=== PATIENT | female | born 1980 | race Caucasian/White ===

== ENCOUNTER 2019-09-11 22:56 | Inpatient (IN) | payer MEDICAID ==
[~2019-09-11] VITALS: Ht 152.4 cm; Wt 56.1 kg
[2019-09-11 23:27] LABS: HEMATOCRIT 46.5 % (36.0-48.0); HEMOGLOBIN 14.5 g/dL (12-16); MCH 27.5 pg (26.0-34.0); MCHC 31.2 g/dL (31.0-37.0); MCV 88.2 fL (80.0-100.0); MEAN PLATELET VOLUME 8.4 fL (7.4-10.4); PLATELET COUNT 559 10x3/uL (130-400); RBC 5.27 10x6/uL (4.00-5.40); RDW 14.7 % (11.5-14.5); WBC 25.1 10x3/uL (4.8-10.8)
[2019-09-11 23:38] LABS: INR 1.26 (0.85-1.17); PROTIME 15.3 SECONDS (11.6-15.0)
[2019-09-11 23:40] LABS: KETONE - SERUM LARGE mg/dL (NEGATIVE)
[2019-09-11 23:44] LABS: HCG SERUM NEGATIVE (NEGATIVE)
[2019-09-11 23:53] LABS: EOSINOPHILS 1 % (0-7); LYMPHOCYTES 20 % (15-50); MONOCYTES 5 % (2-11); NEUTROPHILS 69 % (40-80)
[2019-09-11 23:54] LABS: PLATELET ESTIMATE INCREASED
[2019-09-12] VITALS (28 sets, daily range): BP systolic 104–160; BP diastolic 58–90; BMI 24.3; BMI 24.2
[2019-09-12 00:02] LABS: ALBUMIN 3.9 g/dL (3.4-5.0); ALKALINE PHOSPHATASE 194 U/L (46-116); ALT (SGPT) 39 U/L (10-68); AMYLASE - SERUM 38 U/L (25-115); BILIRUBIN - TOTAL 0.44 mg/dL (0.2-1.3); CALCIUM 8.9 mg/dL (8.5-10.1); CHLORIDE - SERUM 95 mmol/L (98-107); CKMB 0.9 U/L (0.0-3.6); CREATINE KINASE 47 UL (21-215); CREATININE - SERUM 1.1 mg/dL (0.6-1.3); LIPASE 114 U/L (73-393); MAGNESIUM - SERUM 2.1 mg/dL (1.8-2.4); POTASSIUM - SERUM 5.2 mmol/L (3.5-5.1); PROTEIN - SERUM 9.5 g/dL (6.4-8.2); SODIUM 131 mmol/L (136-145); UREA NITROGEN 19 mg/dL (7-18); eGFR NON AFRICAN AMERICAN 59 mL/min (90-120)
[2019-09-12 00:06] LABS: CALC OSMOLALITY 284 mosm/kg (275-300); TROPONIN-I < 0.017 ng/mL (0.000-0.060)
[2019-09-12 00:07] LABS: CARBON DIOXIDE 5.8 mmol/L (21.0-32.0); GLUCOSE 464 mg/dL (74-106)
[2019-09-12 00:16] LABS: APPEARANCE HAZY (CLEAR); BILIRUBIN NEGATIVE (NEGATIVE); COLOR STRAW (YELLOW); GLUCOSE 1000 mg/dL (NEGATIVE); KETONE LARGE mg/dL (NEGATIVE); NITRITE NEGATIVE (NEGATIVE); PROTEIN 1+ mg/dL (NEGATIVE); UROBILINOGEN NORMAL (NORMAL)
[2019-09-12 00:17] LABS: RED CELLS - URINE 0-5 /hpf (0-5); UDS - AMPHET NEGATIVE QUAL (NEGATIVE); UDS - BARB NEGATIVE QUAL (NEGATIVE); UDS - BENZO NEGATIVE QUAL (NEGATIVE); UDS - COCAINE NEGATIVE QUAL (NEGATIVE); UDS - OPIATE NEGATIVE QUAL (NEGATIVE); UDS - PCP NEGATIVE QUAL (NEGATIVE); UDS - THC NEGATIVE QUAL (NEGATIVE); WHITE CELLS - URINE 0-5 /hpf (NEGATIVE)
[2019-09-12 00:18] LABS: AMORPHOUS SEDIMENT <1+ /lpf (NONE SEEN); BACTERIA FEW /hpf (NEGATIVE); EPITHELIAL CELLS 0-5 /hpf (0-5)
--- NOTE | 2019-09-12 02:30 | NUR ---
UNABLE TO GET TEMP ABOVE 92.8. LYDIA HUGGER PLACED ON PATIENT.
--- NOTE | 2019-09-12 03:10 | NUR ---
UPON ENTERING PATIENT ROOM PATIENT WAS FOUND STANDING AT THE END OF THE BED AND STATES SHE WAS GETTING WATER FROM SINK. FOUND EJ IN PATIENT NECK WAS PULLED OUT. ASSISTED PATIENT BACK TO BED AND EXPLAINED WHY SHE COULDN'T HAVE ANYTHING TO DRINK AT THIS TIME. MOUTH SWAB GIVEN.
--- NOTE | 2019-09-12 03:45 | NUR ---
IV RESTARTED IN L AC WITH 22 G CATH X3 STICKS USING ASEPTIC TECHNIQUE. IV WITH GOOD BLOOD RETURN AND FLUSHED EASILY. IV IN L HAND INTACT AND PATENT.
--- NOTE | 2019-09-12 04:57 | NUR ---
PATIENT TEMP IS UP TO 94.8 BUT PATIENT REFUSES TO HAVE LYDIA HUGGER ON AT THIS TIME. PATIENT IS VERY BELLIGERENT, CUSSING, AND REFUSING TO COOPERATE UNTIL SHE CAN HAVE ICE CHIPS.
--- NOTE | 2019-09-12 05:28 | NUR ---
PATIENTS BOYFRIEND IS AT BEDSIDE, CAME OUT TO NURSES STATION STATING THE PATIENT WAS WANTING PAIN MEDICATION. EXPLAINED TO HIM THAT PATIENT HAS BEEN VERY OBTUNDED PRIOR TO HIS ARRIVAL.
[2019-09-12 05:44] LABS: CALCIUM 8.3 mg/dL (8.5-10.1); CHLORIDE - SERUM 108 mmol/L (98-107); POTASSIUM - SERUM 4.6 mmol/L (3.5-5.1); SODIUM 141 mmol/L (136-145); UREA NITROGEN 17 mg/dL (7-18)
[2019-09-12 05:45] LABS: CALC OSMOLALITY 294 mosm/kg (275-300); CREATININE - SERUM 0.8 mg/dL (0.6-1.3); GLUCOSE 307 mg/dL (74-106); eGFR NON AFRICAN AMERICAN 85 mL/min (90-120)
[2019-09-12 05:46] LABS: CARBON DIOXIDE 4.9 mmol/L (21.0-32.0)
--- NOTE | 2019-09-12 06:49 | NUR ---
ABG ORDERED FOR PATIENT AT 0630--PATIENT IS REFUSING ABG UNTIL SHE GETS ICE CHIPS. PER NURSE PATIENT IS UNABLE TO HAVE ICE CHIPS DUE TO DKA/VOMITTING. ADVISED PATIENT THAT WE NEED TO HAVE THE RESULTS OF THE ABG SO THAT WE CAN PROPERLY TREAT HER BUT PATIENT IS REFUSING.
--- NOTE | 2019-09-12 07:00 | NUR ---
RECEIVED REPORT AT BEDSIDE. PT ON INSULIN DRIP AT 10.7UNITS/HR. HR TACHYCARDIC. OTHER VITALS STABLE. PT AWAKE AND ALERT WILL CONTINUE TO MONITOR
[2019-09-12 08:32] LABS: CALC OSMOLALITY 287 mosm/kg (275-300); CALCIUM 7.7 mg/dL (8.5-10.1); CHLORIDE - SERUM 114 mmol/L (98-107); CREATININE - SERUM 0.7 mg/dL (0.6-1.3); GLUCOSE 173 mg/dL (74-106); SODIUM 142 mmol/L (136-145); UREA NITROGEN 16 mg/dL (7-18); eGFR NON AFRICAN AMERICAN > 90 mL/min (90-120)
[2019-09-12 08:33] LABS: CARBON DIOXIDE 8.4 mmol/L (21.0-32.0)
--- NOTE | 2019-09-12 10:35 | NUR ---
PATIENT RESTING STABLE IN BED. ZOFRAN DRIP INFUSING. INSULIN DRIP INFUSING PER DKA PROTOCOL CALCULATION. D5 1/2 NS INFUSING AT 175.
--- NOTE | 2019-09-12 11:48 | MORECARE ---
CASE MANAGEMENT DISCHARGE SUMMARY PATIENT: BECKA OLSON UNIT: [id number] ADM DATE: 09/12/19 AGE: 39 : 82 SEX: F ROOM/BED: D.2302 AUTHOR: CHASIDY SINGH PHYSICIAN: REFERRING PHYSICIAN: SAEED CASTAÑEDA MD DATE OF SERVICE: 09/12/19 Discharge Plan Patient Name: BECKA OLSON Facility: [facility]:[place] : 1980 Planned Disposition: Anticipated Discharge Date: Discharge Date: Expected LOS: Initial Reviewer: [email or web address] Initial Review Date: 09/12/2019 Generated: 09/12/19 12:47 pm Patient Name: BECKA OLSON Page [phone] at 1148 All edits/amendments must be made on the electronic document DICTATION DATE: 09/12/19 1147 OPTICAL MECHANIC APPRENTICE: ABEBE 09/12/19 1147 RPT#: [id number] DC DATE: STATUS: ADM IN [facility] [address] [place] [address] END OF REPORT
--- NOTE | 2019-09-12 11:55 | MORECARE ---
CASE MANAGEMENT DISCHARGE SUMMARY PATIENT: BECKA OLSON UNIT: [id number] ADM DATE: 09/12/19 AGE: 39 : 82 SEX: F ROOM/BED: D.2302 AUTHOR: CHASIDY SINGH PHYSICIAN: REFERRING PHYSICIAN: SAEED CASTAÑEDA MD DATE OF SERVICE: 09/12/19 Discharge Plan Patient Name: BECKA OLSON Facility: [facility]:[place] : 1980 Planned Disposition: Anticipated Discharge Date: Discharge Date: Expected LOS: Initial Reviewer: [email or web address] Initial Review Date: 09/12/2019 Generated: 09/12/19 12:55 pm DCP- Discharge Planning Updated by [email or web address]: Deb Blackwell on 09/12/19 10:[address] CM attempted to visit with patient she is too drowsy at this time for discharge planning assessment. CM will attempt to reassess at a later time. CM will continue to follow and assist as needed with discharge planning / needs. Last DP export: 09/12/19 10:48 Patient Name: BECKA OLSON Page 13947 at 1155 All edits/amendments must be made on the electronic document DICTATION DATE: 09/12/19 1155 DRILL SERGEANT: ABEBE 09/12/19 1155 RPT#: [id number] DC DATE: STATUS: ADM IN [facility] [address] [place] [address] END OF REPORT
--- NOTE | 2019-09-12 12:49 | NUR ---
DR. CASTAÑEDA MADE ROUNDS. TYLENOL ORDERS FOR PAIN
[2019-09-12 12:54] LABS: CALC OSMOLALITY 284 mosm/kg (275-300); CALCIUM 7.7 mg/dL (8.5-10.1); CHLORIDE - SERUM 113 mmol/L (98-107); CREATININE - SERUM 0.7 mg/dL (0.6-1.3); GLUCOSE 182 mg/dL (74-106); POTASSIUM - SERUM 3.5 mmol/L (3.5-5.1); SODIUM 140 mmol/L (136-145); UREA NITROGEN 15 mg/dL (7-18); eGFR NON AFRICAN AMERICAN > 90 mL/min (90-120)
[2019-09-12 12:55] LABS: CARBON DIOXIDE 14.9 mmol/L (21.0-32.0)
--- NOTE | 2019-09-12 13:22 | NUR ---
OBGYN DOCTOR MADE ROUNDS TO ASSESS PERINEAL ABSCESS. FEMALE NURSE ASSISTED. DECIDED TO SEE CURRENT ABX WILL RESOLVE ISSUE AND MAY ORDER CT
--- NOTE | 2019-09-12 14:00 | NUR ---
REPLACING POTASSIUM PER PROTOCOL. STILL ON INSULIN DRIP. VSS. WILL CONTINUE TO MONITOR
--- NOTE | 2019-09-12 14:25 | NUR ---
SPOKE TO DR. NAPOLES ON PHONE. ORDER FOR CT OF PELVIS WITHOUT CONTRAST AND SCHEDULE I&D TOMORROW IN [facility].R.
--- NOTE | 2019-09-12 16:00 | NUR ---
RETURNED FROM CT OF GLUTEAL ABSCESS. NO COMPLICATIONS
[2019-09-12 16:32] LABS: CALCIUM 7.8 mg/dL (8.5-10.1); CARBON DIOXIDE 13.2 mmol/L (21.0-32.0); CHLORIDE - SERUM 113 mmol/L (98-107); POTASSIUM - SERUM 3.7 mmol/L (3.5-5.1); SODIUM 140 mmol/L (136-145); UREA NITROGEN 13 mg/dL (7-18)
[2019-09-12 16:35] LABS: CALC OSMOLALITY 280 mosm/kg (275-300); CREATININE - SERUM 0.5 mg/dL (0.6-1.3); GLUCOSE 132 mg/dL (74-106); eGFR NON AFRICAN AMERICAN > 90 mL/min (90-120)
--- NOTE | 2019-09-12 19:15 | NUR ---
PT SLEEPING, OPENS EYES TO VERBAL, LUNGS CLEAR, RIGHT HAND PIV AND LEFT AC PIV INTACT WITH FLUIDS INFUSING, HARKINS PATENT TO BSD, VITALS STABLE, WILL CONT TO MONITOR
[2019-09-12 20:35] LABS: CALC OSMOLALITY 276 mosm/kg (275-300); CALCIUM 7.8 mg/dL (8.5-10.1); CHLORIDE - SERUM 113 mmol/L (98-107); CREATININE - SERUM 0.5 mg/dL (0.6-1.3); GLUCOSE 88 mg/dL (74-106); SODIUM 139 mmol/L (136-145); UREA NITROGEN 13 mg/dL (7-18); eGFR NON AFRICAN AMERICAN > 90 mL/min (90-120)
[2019-09-12 20:42] LABS: CARBON DIOXIDE 16.6 mmol/L (21.0-32.0)
--- NOTE | 2019-09-12 21:30 | NUR ---
PT AROUSES EASILY, VISITOR PRESENT @ BEDSIDE, NO DISTRESS NOTED
--- NOTE | 2019-09-12 23:30 | NUR ---
PT SLEEPING WITH NO DISTRESS, VITALS STABLE
[2019-09-13] VITALS (16 sets, daily range): BP systolic 96–127; BP diastolic 59–84
--- NOTE | 2019-09-13 00:50 | NUR ---
PT AROUSES EASILY, INFORMED OF NPO STATUS AND NEED FOR BATH IN AM FOR UPCOMING PROCEDURE, NO C/O AT THIS TIME
--- NOTE | 2019-09-13 03:00 | NUR ---
PT C/O BEING COLD, GIVEN WARM BLANKET, C/O NAUSEA, GIVEN ZOFRAN IVP AND PLACED COLD WET RAG ON FOREHEAD, ORAL TEMP 98.0, WILL CONT TO MONITOR
--- NOTE | 2019-09-13 04:15 | NUR ---
PT REFUSES FINGER STICKS, NOTIFIED CHARGE NURSE, PT CONT TO REFUSE, INSULIN GTT TURNED OFF, STATES SHE IS TOO TIRED TO TAKE A BATH, WANTS FEMALE NURSE TO BATH HER
[2019-09-13 04:31] LABS: BASOPHILS 0.1 % (0-2); EOSINOPHILS 0.3 % (0-7); HEMATOCRIT 39.5 % (36.0-48.0); HEMOGLOBIN 13.1 g/dL (12-16); IMMATURE GRANULOCYTES 0.8 % (0-5); LYMPHOCYTES 10.4 % (15-50); MCH 27.2 pg (26.0-34.0); MCHC 33.2 g/dL (31.0-37.0); MEAN PLATELET VOLUME 8.6 fL (7.4-10.4); MONOCYTES 11.9 % (2-11); NEUTROPHILS 76.5 % (40-80); RBC 4.82 10x6/uL (4.00-5.40); RDW 15.7 % (11.5-14.5)
[2019-09-13 04:33] LABS: PLATELET COUNT 323 10x3/uL (130-400); WBC 10.4 10x3/uL (4.8-10.8)
--- NOTE | 2019-09-13 04:35 | NUR ---
FEMALE NURSE TO ROOM(JACI), PT CONSENTS TO FSBS, FSBS 122, RESTARTED INSULIN GTT, PT BATHED PER NURSE, EMESISED APPROX 50 CC GREEN BILE
[2019-09-13 04:41] LABS: CALC OSMOLALITY 278 mosm/kg (275-300); CALCIUM 7.9 mg/dL (8.5-10.1); CHLORIDE - SERUM 110 mmol/L (98-107); CREATININE - SERUM 0.5 mg/dL (0.6-1.3); GLUCOSE 116 mg/dL (74-106); MAGNESIUM - SERUM 1.6 mg/dL (1.8-2.4); POTASSIUM - SERUM 3.4 mmol/L (3.5-5.1); SODIUM 140 mmol/L (136-145); UREA NITROGEN 11 mg/dL (7-18); eGFR NON AFRICAN AMERICAN > 90 mL/min (90-120)
[2019-09-13 04:50] LABS: KETONE - SERUM SMALL mg/dL (NEGATIVE)
[2019-09-13 04:58] LABS: PHOSPHOROUS 1.4 mg/dL (2.5-4.9)
--- NOTE | 2019-09-13 06:00 | NUR ---
PT SLEEPING, HOB ELEVATED 45 DEGREES, NO DISTRESS NOTED
--- NOTE | 2019-09-13 07:00 | NUR ---
REPORT RECEIVED. PT RESTING. IV TO LEFT AC AND TO RIGHT HAND. SEE IV FLOWSHEET. PT HAD CHG BATH. POSSIBLE I AND D TODAY. PT IS ON ROOM AIR AND IS NPO. SHE HAS A HARKINS. HEAD TO TOE ASSESSMENT COMPLETED. EXPLAINED THE IMPORTANCE OF BLOOD SUGAR CHECKS AND THAT WE WERE STILL DOING THEM HOURLY. VSS. WILL CONTINUE TO MONITOR. CURRENTLY REPLACING ELECTROLYTES (POTASSIUM, MAGNESIUM, PHOSPHORUS).
--- NOTE | 2019-09-13 09:50 | NUR ---
PT REFUSED TO HAVE BLOOD SUGAR CHECKED. EDUCATED THE PT ON THE IMPORTANCE OF CHECKING IT HOURLY WHILE ON AN INSULIN DRIP AND THAT WE ARE STILL TRYING TO CLOSE HER ANION GAP AND FOR HER TO NOT HAVE KETONES IN HER URINE. STILL REFUSES. STATES HER FINGERS HURT. INSULIN DRIP TURNED OFF. WILL CONTINUE TO MONITOR.
--- NOTE | 2019-09-13 11:50 | NUR ---
PT REFUSED LAB DRAW. DR CASTAÑEDA IN UNIT AND AWARE.
--- NOTE | 2019-09-13 13:20 | NUR ---
BEDSIDE REPORT RECEIVED. VSS. WILL CONT TO MONITOR.
--- NOTE | 2019-09-13 15:15 | NUR ---
REASSESSMENT COMPLETE, NO CHANGES NOTED, VSS, CALL LIGHT IN REACH
--- NOTE | 2019-09-13 17:00 | NUR ---
PT REFUSING BLOOD PRESSURES TO BE TAKEN. WILL CONT TO MONITOR.
[2019-09-13 17:19] LABS: CALCIUM 7.5 mg/dL (8.5-10.1); CARBON DIOXIDE 15.5 mmol/L (21.0-32.0); CHLORIDE - SERUM 111 mmol/L (98-107); SODIUM 140 mmol/L (136-145)
--- NOTE | 2019-09-13 17:30 | NUR ---
PT RESTING COMFORTABLY AT THIS TIME, WILL CON'T TO MONITOR
[2019-09-13 17:35] LABS: CALC OSMOLALITY 280 mosm/kg (275-300); CREATININE - SERUM 0.3 mg/dL (0.6-1.3); GLUCOSE 179 mg/dL (74-106); POTASSIUM - SERUM 4.1 mmol/L (3.5-5.1); UREA NITROGEN 8 mg/dL (7-18); eGFR NON AFRICAN AMERICAN > 90 mL/min (90-120)
--- NOTE | 2019-09-13 19:00 | NUR ---
REPORT RECIEVED, PT AAOX4, SLIGHTLY LETHARGIC. ASSESSMENT COMPLETED, SEE FLOWSHEET. PIV IN LEFT AC INFILTRATED, CATHETER REMOVED, TIP INTACT, DRESSING CDI. WILL CONTINUE TO MONITOR.
--- NOTE | 2019-09-13 19:06 | MORECARE ---
CASE MANAGEMENT DISCHARGE SUMMARY PATIENT: BECKA OLSON UNIT: [id number] ADM DATE: 09/12/19 AGE: 39 : 82 SEX: F ROOM/BED: D.2302 AUTHOR: CHASIDY SINGH PHYSICIAN: REFERRING PHYSICIAN: SAEED CASTAÑEDA MD DATE OF SERVICE: 09/13/19 Discharge Plan Patient Name: BECKA OLSON Facility: [facility]:[place] : 1980 Planned Disposition: Home Anticipated Discharge Date: Discharge Date: Expected LOS: Initial Reviewer: [email or web address] Initial Review Date: 09/12/2019 Generated: 09/13/19 8:06 pm DCP- Discharge Planning Updated by [email or web address]: Deb Blackwell on 09/12/19 10:[address] CM attempted to visit with patient she is too drowsy at this time for discharge planning assessment. CM will attempt to reassess at a later time. CM will continue to follow and assist as needed with discharge planning / needs. Last DP export: 09/12/19 10:55 Patient Name: BECKA OLSON Page 39870 at 1906 All edits/amendments must be made on the electronic document DICTATION DATE: 09/13/191905 AIRCRAFT RIGGING AND CONTROLS MECHANIC: ABEBE 09/13/191905 RPT#: [id number] DC DATE: STATUS: ADM IN [facility] [address] [place] [address] END OF REPORT
--- NOTE | 2019-09-13 19:13 | MORECARE ---
CASE MANAGEMENT DISCHARGE SUMMARY PATIENT: BECKA OLSON UNIT: [id number] ADM DATE: 09/12/19 AGE: 39 : 82 SEX: F ROOM/BED: D.2302 AUTHOR: CHASIDY SINGH PHYSICIAN: REFERRING PHYSICIAN: SAEED CASTAÑEDA MD DATE OF SERVICE: 09/13/19 Discharge Plan Patient Name: BECKA OLSON Facility: [facility]:[place] : 1980 Planned Disposition: Home Anticipated Discharge Date: Discharge Date: Expected LOS: Initial Reviewer: [email or web address] Initial Review Date: 09/12/2019 Generated: 09/13/19 8:13 pm DCP- Discharge Planning Updated by [email or web address]: Deb Blackwell on 09/12/19 10:[address] CM attempted to visit with patient she is too drowsy at this time for discharge planning assessment. CM will attempt to reassess at a later time. CM will continue to follow and assist as needed with discharge planning / needs. DCPIA - Discharge Planning Initial Assessment Updated by [email or web address]: Deb Blackwell on 09/13/19 7:10 pm * Is the patient Alert and Oriented? Yes * How many steps to enter\exit or inside your home? * PCP KEVIN * Pharmacy [facility] * Preadmission Environment Home with Family * ADLs Independent * Equipment None * List name and contact numbers for known caregivers / representatives who currently or will assist patient after discharge: KRISTEN MANNING - [phone] * Community resources currently utilized None * Additional services required to return to the preadmission environment? No * Can the patient safely return to the preadmission environment? Yes * Has this patient been hospitalized within the prior 30 days at any hospital? No Last DP export: 09/13/19 6:06 Patient Name: BECKA OLSON Page [phone] at 1913 All edits/amendments must be made on the electronic document DICTATION DATE: 09/13/191912 TAILER OUT: ABEBE 09/13/191912 RPT#: [id number] DC DATE: STATUS: ADM IN [facility] [address] [place] [address] END OF REPORT
--- NOTE | 2019-09-13 19:21 | MORECARE ---
CASE MANAGEMENT DISCHARGE SUMMARY PATIENT: BECKA OLSON UNIT: [id number] ADM DATE: 09/12/19 AGE: 39 : 82 SEX: F ROOM/BED: D.2302 AUTHOR: FRANCISCODOC PHYSICIAN: REFERRING PHYSICIAN: SAEED CASTAÑEDA MD DATE OF SERVICE: 09/13/19 Discharge Plan Patient Name: BECKA OLSON Facility: [facility]:[place] : 1980 Planned Disposition: Home Anticipated Discharge Date: Discharge Date: Expected LOS: Initial Reviewer: [email or web address] Initial Review Date: 09/12/2019 Generated: 09/13/19 8:21 pm Comments DCP- Discharge Planning Updated by [email or web address]: Deb Blackwell on 09/13/19 6:[address] Patient Name: BECKA OLSON Admission Status: ER Accout number: [id number] Admission Date: 09-12-2019 : 1980 Admission Diagnosis: Attending: SAEED CASTAÑEDA Current LOS: 1 Anticipated DC Date: Planned Disposition: Home Primary Insurance: MEDICAID [place] PENDING Discharge Planning Comments: CM met with patient to complete initial dc planning assessment. CM educated patient on the CM role and verbal consent given by patient to complete assessment. Patient lives at home with her fianc? where she is independent with her care. At discharge patient plans to return home and feels this is a safe discharge. CM discussed availability of home health, rehab services, and medical equipment. Her fianc? will drive her home. Patient states that she doesn't have a glucometer or any testing supplies to check B/S. Patient also stated that she hasn't had any of her medications in over a month d/t not having insurance. [employer] has been up to see patient and she has Medicaid pending. Patient may need assistance with medications on d/c. CM explained to patient that she can get a glucometer and supplies at [facility] for a very reasonable maria. Patient denied known discharge needs at this time. CM will continue to follow and will assist as needed with dc plans/needs. Product Steward: Deb Blackwell DCP- Discharge Planning Updated by [email or web address]: Deb Blackwell on 09/12/19 10:[address] CM attempted to visit with patient she is too drowsy at this time for discharge planning assessment. CM will attempt to reassess at a later time. CM will continue to follow and assist as needed with discharge planning / needs. DCPIA - Discharge Planning Initial Assessment Updated by [id number]: Deb Blackwell on 09/13/19 7:10 pm * Is the patient Alert and Oriented? Yes * How many steps to enter\exit or inside your home? * PCP KEVIN * Pharmacy [facility] * Preadmission Environment Home with Family * ADLs Independent * Equipment None * List name and contact numbers for known caregivers / representatives who currently or will assist patient after discharge: KRISTEN JUAREZ - [phone] * Community resources currently utilized None * Additional services required to return to the preadmission environment? No * Can the patient safely return to the preadmission environment? Yes * Has this patient been hospitalized within the prior 30 days at any hospital? No Last DP export: 09/13/19 6:13 Patient Name: BECKA OLSON Page [id number] at 1921 All edits/amendments must be made on the electronic document DICTATION DATE: 09/13/191920 CHOCOLATE MOLDER: ABEBE 09/13/191920 RPT#: [id number] DC DATE: STATUS: ADM IN [facility] [address] [place] [address] END OF REPORT
--- NOTE | 2019-09-13 20:35 | NUR ---
CHRISTO AGUERO APN IN PATIENT ROOM. UPDATED ON STATUS, NEW ORDERS RECIEVED.
--- NOTE | 2019-09-13 23:00 | NUR ---
PT RESTING IN BED, C/O HEAD PAIN. VITALS STABLE, WILL CONTINUE TO MONITOR.
[2019-09-13 23:41] LABS: CALCIUM 7.1 mg/dL (8.5-10.1); CHLORIDE - SERUM 106 mmol/L (98-107); SODIUM 140 mmol/L (136-145)
[2019-09-13 23:48] LABS: CALC OSMOLALITY 276 mosm/kg (275-300); CREATININE - SERUM 0.5 mg/dL (0.6-1.3); GLUCOSE 115 mg/dL (74-106); UREA NITROGEN 5 mg/dL (7-18); eGFR NON AFRICAN AMERICAN > 90 mL/min (90-120)
--- NOTE | 2019-09-14 01:00 | NUR ---
PT RESTING IN BED, LATHARGIC, VITALS STABLE. WILL CONTINUE TO MONITOR.
--- NOTE | 2019-09-14 01:48 | NUR ---
PT REFUSES TO TAKE Q1H BP READINGS., WILL ONLY ALLOW Q4H BP READINGS.
[2019-09-14 03:00] VITALS: BP 94/56
--- NOTE | 2019-09-14 03:00 | NUR ---
PT REPORTS PAIN AT IV SITE IN RIGHT HAND, ATTEMPTED TO FLUSH LINE WITH NO SUCCESS. SITE WITHOUT REDNESS OR SWELLING. ATTEMPTED TO INSERT ANOTHER IV, PT NOT TOLERATING AND REFUSED TO ALLOW ANOTHER ATTEMPT. VITALS STABLE, WILL CONTINUE PLAN OF CARE.
--- NOTE | 2019-09-14 05:00 | NUR ---
PT BATHED SELF, COMPELTE LINEN CHANGE.
--- NOTE | 2019-09-14 07:00 | NUR ---
Pt noncompliant. refusing meds, finger sticks, IV's, medications. Did agree to let lab draw blood x1 this am only. Pt screamed loudly for some time when lab being drawn.
[2019-09-14 08:19] LABS: BASOPHILS 0.2 % (0-2); EOSINOPHILS 0.9 % (0-7); HEMATOCRIT 33.7 % (36.0-48.0); HEMOGLOBIN 10.8 g/dL (12-16); IMMATURE GRANULOCYTES 0.6 % (0-5); LYMPHOCYTES 17.2 % (15-50); MCH 26.4 pg (26.0-34.0); MCV 82.4 fL (80.0-100.0); MEAN PLATELET VOLUME 8.6 fL (7.4-10.4); MONOCYTES 11.1 % (2-11); PLATELET COUNT 341 10x3/uL (130-400); RBC 4.09 10x6/uL (4.00-5.40); RDW 16.4 % (11.5-14.5); WBC 9.8 10x3/uL (4.8-10.8)
[2019-09-14 08:25] LABS: KETONE - SERUM SMALL mg/dL (NEGATIVE)
[2019-09-14 08:30] LABS: CALC OSMOLALITY 280 mosm/kg (275-300); CALCIUM 7.7 mg/dL (8.5-10.1); CARBON DIOXIDE 20.6 mmol/L (21.0-32.0); CHLORIDE - SERUM 111 mmol/L (98-107); CREATININE - SERUM 0.4 mg/dL (0.6-1.3); GLUCOSE 154 mg/dL (74-106); MAGNESIUM - SERUM 1.7 mg/dL (1.8-2.4); SODIUM 141 mmol/L (136-145); UREA NITROGEN 4 mg/dL (7-18); eGFR NON AFRICAN AMERICAN > 90 mL/min (90-120)
[2019-09-14 08:31] LABS: POTASSIUM - SERUM 3.7 mmol/L (3.5-5.1)
--- NOTE | 2019-09-14 11:00 | NUR ---
PT STILL REFUSING CARE. ALL MD'S AWARE. NO CHANGES IN ASSESSMENT.
--- NOTE | 2019-09-14 14:00 | NUR ---
pt agreed to having PICC placed. Carol Ramirez aware.
--- NOTE | 2019-09-14 16:30 | NUR ---
PT UPSET AND ASKING TO SEE CHARGE NURSE. ELYSSA WAGNER WAS INFORMED. PT UPSET D/T NOT GETTING REG DIET BECAUSE MD STATED TO HAVE HER ON FULL LIQUIDS. ADV TOLERATED. PT WAS GIVEN REG TRAY FOR DINNER. INSTRUCTED SHE WILL BE PO AFTER MIDNIGHT FOR SURGERY WITH DR. OLIVAS.
--- NOTE | 2019-09-14 20:18 | NUR ---
PT POC GLUCOSE 319. RECEIVED STAT ORDER FROM CHRISTO TAO FOR STAT BMP.
[2019-09-14 20:41] LABS: CALCIUM 7.7 mg/dL (8.5-10.1); CARBON DIOXIDE 21.3 mmol/L (21.0-32.0); CHLORIDE - SERUM 103 mmol/L (98-107); POTASSIUM - SERUM 4.2 mmol/L (3.5-5.1); SODIUM 135 mmol/L (136-145); UREA NITROGEN 5 mg/dL (7-18)
[2019-09-14 20:42] LABS: CALC OSMOLALITY 283 mosm/kg (275-300); CREATININE - SERUM 0.7 mg/dL (0.6-1.3); eGFR NON AFRICAN AMERICAN > 90 mL/min (90-120)
[2019-09-14 20:43] LABS: GLUCOSE 403 mg/dL (74-106)
--- NOTE | 2019-09-14 22:00 | NUR ---
NOTIFIED CHRISTO TAO ABOUT STAT BMP RESULTS AND PTS CURRENT BLOOD GLUCOSE LEVEL. RECEIVED NEW ORDERS. NO FUTHER NEEDS AT THIS TIME. WILL CTM.
[2019-09-14 22:27] VITALS: BP 94/54
[2019-09-14 23:51] VITALS: BP 110/65
--- NOTE | 2019-09-15 00:20 | NUR ---
PT REFUSING TELEMETRY AT THIS TIME. NO FURTHER ISSUES NOTED.
--- NOTE | 2019-09-15 04:06 | NUR ---
PT RESTING QUIETLY. NO S/S OF DISTRESS AT THIS TIME. CALL LIGHT IN REACH. WILL CTM.
[2019-09-15 05:28] LABS: BASOPHILS 0.1 % (0-2); EOSINOPHILS 0.7 % (0-7); HEMATOCRIT 35.1 % (36.0-48.0); HEMOGLOBIN 11.5 g/dL (12-16); IMMATURE GRANULOCYTES 0.7 % (0-5); MCH 26.9 pg (26.0-34.0); MCHC 32.8 g/dL (31.0-37.0); MONOCYTES 12.4 % (2-11); NEUTROPHILS 64.1 % (40-80); RBC 4.28 10x6/uL (4.00-5.40); RDW 16.4 % (11.5-14.5); WBC 12.2 10x3/uL (4.8-10.8)
[2019-09-15 05:45] LABS: CALCIUM 7.9 mg/dL (8.5-10.1); CHLORIDE - SERUM 108 mmol/L (98-107); MAGNESIUM - SERUM 1.5 mg/dL (1.8-2.4); POTASSIUM - SERUM 3.6 mmol/L (3.5-5.1); SODIUM 143 mmol/L (136-145); UREA NITROGEN 5 mg/dL (7-18)
[2019-09-15 05:53] LABS: CALC OSMOLALITY 281 mosm/kg (275-300); CARBON DIOXIDE 27.5 mmol/L (21.0-32.0); CREATININE - SERUM 0.5 mg/dL (0.6-1.3); GLUCOSE 100 mg/dL (74-106); PHOSPHOROUS 2.6 mg/dL (2.5-4.9); eGFR NON AFRICAN AMERICAN > 90 mL/min (90-120)
[2019-09-15 06:02] LABS: PLATELET COUNT 254 10x3/uL (130-400)
[2019-09-15 06:17] LABS: KETONE - SERUM NEGATIVE (NEGATIVE)
--- NOTE | 2019-09-15 07:48 | NUR ---
Nutrition follow-up: Pt NPO for possible I&D today Labs reviewed; Glucose still elevated with small ketones present Pt refusing care per nursing Wt: 124# RDN following.
--- NOTE | 2019-09-15 07:59 | NUR ---
AWAKE AND ALERT. ORIENTED X3. NO C/O AT THIS TIME. LUNGS ARE CLEAR BILATEARALLY, NO COUGH NOTED. SKIN IS INTACT WTIHOUT REDNESS EXCEPT WOUND TO ALAYNA AREA. PICC TO RIGHT UPPER ARM IS PATENT WITHOUT REDNESS AT INSERTION SITE. DENIES NEEDS.
[2019-09-15 08:04] VITALS: BP 113/75
--- NOTE | 2019-09-15 08:45 | NUR ---
fsbs 211. NO INSULIN GIVEN SINCE SHE IS NPO FOR SURGERY. WILL MONITOR.
--- NOTE | 2019-09-15 09:15 | NUR ---
FAMILY AT BEDSIDE. SURGERY CALLED AND SHE IS NEXT ON LIST FOR DR. OLIVAS. NOTIFIED OF SAME. DENIES NEEDS.
--- NOTE | 2019-09-15 10:31 | NUR ---
OFF UNIT VIA BED TO SURGERY. FAMILY WITH PATIENT.
[2019-09-15 11:05] VITALS: Ht 152.4 cm; Wt 56.1 kg
[2019-09-15 11:30] VITALS: BP 113/75
--- NOTE | 2019-09-15 11:30 | NUR ---
RETURNED FROM SURGERY. A/O X3. DRESSING TO ALAYNA AREA DRY AND INTACT. DENIES NEEDS.
[2019-09-15 11:45] VITALS: BP 109/77
[2019-09-15 12:00] VITALS: BP 102/67
[2019-09-15 13:15] VITALS: BP 100/64
--- NOTE | 2019-09-15 13:59 | NUR ---
REQUESTED AND GIVEN ONE HYDROCODONE PO FOR C/O ALAYNA PAIN LEVEL 10. WILL MONITOR. REPOSITIONED IN BED FOR COMFORT.
--- NOTE | 2019-09-15 15:38 | NUR ---
REPORT CALLED TO BRITTNI NAPOLES RN ON MED SURG. PATIENT TRANSFERRED VIA WC TO ROOM 2215. ALL QUESTIONS ANSWERED.
--- NOTE | 2019-09-15 16:00 | NUR ---
PATIENT TO ROOM AT THIS TIME. NO COMPLAINTS OR SIGNS OF DISTRESS. VS STABLE. AGREE WITH EARLIER ASSESSMENT. SITTING UP ON SIDE OF BED WITH IV INTACT. CALL LIGHT WITHIN REACH. DENIES ANY NEEDS AT THIS TIME.
[2019-09-15 16:08] LABS: CHLAMYDIA TRACHOMATIS, NAA Negative (Negative)
--- NOTE | 2019-09-15 16:20 | NUR ---
CALLED FOR TELEMETRY.
--- NOTE | 2019-09-15 19:15 | NUR ---
PT ALERT AND ORIENTED WHEN ENTERING THE ROOM, REQUESTS PAIN MEDICINE WHEN AVAILABLE. DRESING TO LABIA AREA CLEAN AN DRY. PATIENT STATES IT HURTS "EVERY NOT AND THEN". PATIENT HAS RIGHT UPPER ARM PICC. HAS CALL LIGHT IN HAND. DENIES FURTHER NEEDS AT THIS TIME. CPOC.
[2019-09-15 20:00] VITALS: BP 96/62
--- NOTE | 2019-09-15 20:55 | NUR ---
HS SNACK PROVIDED
[2019-09-16] VITALS: BP 100/56
--- NOTE | 2019-09-16 00:30 | NUR ---
PATIENT WATCHING TV WHEN ADMINISTERING FLAGYL. DENIES FURTHER NEEDS AT THIS TIME.
--- NOTE | 2019-09-16 03:00 | NUR ---
I have reviewed this patient and I concur with the Shift Assessment completed by the Licensed Practical Nurse today this shift.
[2019-09-16 04:00] VITALS: BP 90/58
[2019-09-16 07:15] LABS: BASOPHILS 0.3 % (0-2); EOSINOPHILS 1.1 % (0-7); HEMATOCRIT 32.4 % (36.0-48.0); HEMOGLOBIN 10.5 g/dL (12-16); IMMATURE GRANULOCYTES 1.4 % (0-5); LYMPHOCYTES 25.6 % (15-50); MCH 26.9 pg (26.0-34.0); MCHC 32.4 g/dL (31.0-37.0); MCV 83.1 fL (80.0-100.0); MEAN PLATELET VOLUME 8.7 fL (7.4-10.4); MONOCYTES 13.8 % (2-11); NEUTROPHILS 57.8 % (40-80); PLATELET COUNT 262 10x3/uL (130-400); RDW 16.8 % (11.5-14.5); WBC 10.6 10x3/uL (4.8-10.8)
[2019-09-16 07:18] LABS: CALC OSMOLALITY 277 mosm/kg (275-300); CALCIUM 7.6 mg/dL (8.5-10.1); CARBON DIOXIDE 29.4 mmol/L (21.0-32.0); CHLORIDE - SERUM 106 mmol/L (98-107); CREATININE - SERUM 0.4 mg/dL (0.6-1.3); GLUCOSE 133 mg/dL (74-106); MAGNESIUM - SERUM 1.4 mg/dL (1.8-2.4); POTASSIUM - SERUM 3.8 mmol/L (3.5-5.1); SODIUM 140 mmol/L (136-145); UREA NITROGEN 5 mg/dL (7-18); eGFR NON AFRICAN AMERICAN > 90 mL/min (90-120)
[2019-09-16 07:21] LABS: PHOSPHOROUS 3.7 mg/dL (2.5-4.9)
--- NOTE | 2019-09-16 07:45 | NUR ---
ALERT AND ORIENTED. LUNGS CLEAR BILATERALLY IN ALL TAPIA. HEART SOUNDS S1 AND S2 HEARD IN ALL TAPIA. BOWEL SOUNDS ACTIVE X 4. SKIN INTACT WITHOUT REDNESS. DRSG TO GROIN C/D/I.INFORMED PATIENT OF NEED TO CHANGE DRSG TODAY. STATES IN PAIN NOW AND WILL LET CHANGE LATER. IDRIS PICC PATENT WITHOUT REDNESS. REQUESTED AND GIVEN PRN PAIN MEDICAITON. DENIES NEEDS. WILL CONTINUE TO MONITOR.
[2019-09-16 08:40] VITALS: BP 100/65
--- NOTE | 2019-09-16 10:00 | NUR ---
UNHOOKED FROM IV TO TAKE SHOWER. IV SITE WRAPPED TO KEEP DRY. NEW PAIR OF UNDERWEAR GIVEN PER DESTINI.
--- NOTE | 2019-09-16 12:40 | NUR ---
ATTEMPTED TO CHANGE DRSG TO GROIN. STATES CAN CHANGE AFTER PRN PAIN MEDICATION. STATES WILL CALL WHEN OK TO CHANGE.
--- NOTE | 2019-09-16 12:43 | NUR ---
REQUESTING PAIN MEDICATION BE CHANGED TO Q4HR FROM Q6HR. SPOKE TO DINH HECTOR WHO STATES OK TO CHANGE TO Q4PRN.
--- NOTE | 2019-09-16 13:37 | NUR ---
PATIENT SLEEPING. WILL ATTEMPT TO CHANGE DRSG.
--- NOTE | 2019-09-16 15:01 | NUR ---
DRSG CHANGED PER ORDER.
--- NOTE | 2019-09-16 15:09 | NUR ---
PATIENT REFUSED COLACE AND MIRALAX. STATES NO PROBLEM HAVING BM.
--- NOTE | 2019-09-16 16:16 | NUR ---
RESTING IN BED. DENIES NEEDS. WILL CONTINUE TO MONITOR.
--- NOTE | 2019-09-16 18:43 | NUR ---
RESTING IN BED. DENIES NEEDS. BED LOW. CALL KEITA AND PERSONAL ITEMS IN REACH.
[2019-09-16 19:00] VITALS: BP 128/50
--- NOTE | 2019-09-16 19:15 | NUR ---
PATIENT WATCHING TV WHEN ENTERING THE ROOM. ALERT AND ORIENTED. EATING DEBORAH CRACKERS AND MILK. PATIENT STATES SHE IS "OKAY" WHEN ASKED PAIN RATING. PERINEAL/LEFT LABIA DRESSING IS CLEAN AND DRY AT THIS TIME. REFUSES SCD'S AND TELEMETRY. DENIES FURTHER NEEDS AT THIS TIME. CALL LIGHT IN REACH. CPOC.
--- NOTE | 2019-09-16 20:55 | NUR ---
ASSESSED FSBS. PATIENT EATING ANOTHER PACK OF DEBORAH CRACKERS AND HAD AN EMPTY SANDWICH TRAY NEXT TO HER. FSBS 450. REASSESSED PER PROTOCAL AND SECOND READING 390. ADMINISTERED 24 UNITS INSULIN. PT TOLERATED WELL. REQUESTED PRN PAIN MEIDICINE. ADMINISTERED PER ORDER. REFUSED MIRALAX BUT TOOK COLACE. CALL LIGHT IN REACH. CPOC.
[2019-09-17] VITALS: BP 121/52
--- NOTE | 2019-09-17 00:54 | NUR ---
FSBS 247. 12 UNITS OF HUMALOG ADMINSTERED PER SLIDING SCALE. DENIES FURTHER NEEDS.
--- NOTE | 2019-09-17 01:15 | NUR ---
I have reviewed this patient and I concur with the Shift Assessment completed by the Licensed Practical Nurse today this shift.
[2019-09-17 04:00] VITALS: BP 99/53
[2019-09-17 05:37] LABS: BASOPHILS 0.2 % (0-2); EOSINOPHILS 1.5 % (0-7); HEMATOCRIT 33.2 % (36.0-48.0); HEMOGLOBIN 10.3 g/dL (12-16); IMMATURE GRANULOCYTES 2.5 % (0-5); LYMPHOCYTES 29.6 % (15-50); MCH 26.2 pg (26.0-34.0); MCV 84.5 fL (80.0-100.0); MEAN PLATELET VOLUME 8.1 fL (7.4-10.4); MONOCYTES 12.1 % (2-11); NEUTROPHILS 54.1 % (40-80); PLATELET COUNT 268 10x3/uL (130-400); RBC 3.93 10x6/uL (4.00-5.40); RDW 16.7 % (11.5-14.5); WBC 9.2 10x3/uL (4.8-10.8)
[2019-09-17 06:02] LABS: ALBUMIN 1.9 g/dL (3.4-5.0); ALKALINE PHOSPHATASE 84 U/L (46-116); ALT (SGPT) 28 U/L (10-68); BILIRUBIN - TOTAL 0.15 mg/dL (0.2-1.3); CALC OSMOLALITY 281 mosm/kg (275-300); CALCIUM 7.7 mg/dL (8.5-10.1); CARBON DIOXIDE 31.6 mmol/L (21.0-32.0); CHLORIDE - SERUM 103 mmol/L (98-107); CREATININE - SERUM 0.5 mg/dL (0.6-1.3); GLUCOSE 175 mg/dL (74-106); MAGNESIUM - SERUM 1.5 mg/dL (1.8-2.4); PHOSPHOROUS 3.9 mg/dL (2.5-4.9); POTASSIUM - SERUM 4.2 mmol/L (3.5-5.1); PROTEIN - SERUM 5.3 g/dL (6.4-8.2); SODIUM 140 mmol/L (136-145); eGFR NON AFRICAN AMERICAN > 90 mL/min (90-120)
[2019-09-17 06:04] LABS: UREA NITROGEN 11 mg/dL (7-18)
[2019-09-17 07:00] VITALS: BP 113/77
--- NOTE | 2019-09-17 07:36 | NUR ---
ALERT AND ORIENTED. LUNGS CLEAR BILATERALLY. HEART SOUNDS S1 AND S2 HEARD IN ALL TAPIA. BOWEL SOUNDS ACTIVE X 4. STATES DOES NOT WANT COLACE OR MIRALAX WITH AM MEDS. ALSO STATES DOES NOT WANT LOVENOX SHOT. PACKING TO LEFT LABIA/GLUTEAL AREA INTACT. WILL CHANGE TODAY. IDRIS PICC PATENT WITHOUT REDNESS. SKIN OTHERWISE INTACT WITHOUT REDNESS. DENIES NEEDS. BED LOW. CALL KEITA AND PERSONAL ITEMS IN REACH. WILL CONTINUE TO MONITOR.
--- NOTE | 2019-09-17 09:57 | NUR ---
EDUCATION PROVIDED ON NEW DIABETIC MEDICATION, METFORMIN. VERBALIZED UNDERSTANIDNG.
[2019-09-17 11:56] VITALS: BP 110/79
--- NOTE | 2019-09-17 12:39 | NUR ---
SITTING IN BED EATING LUNCH. DENIES NEEDS. WILL CONTINUE TO MONITOR.
--- NOTE | 2019-09-17 13:32 | NUR ---
DRSG CHANGED TO LEFT LABIA/GLUTEAL AREA PER ORDER.
--- NOTE | 2019-09-17 13:51 | NUR ---
ORDER PLACED BY MD FOR DULCOLAX SUPPOSITORY. PATIENT REFUSING SUPPOSITORY. EDUCATION PROVIDED ON NEED TO HAVE BM. STATES IS NOT HAVING PROBLEMS WITH BM. ALSO STATES NO BM SINCE YESTERDAY. STATES DOES NOT WANT SUPPOSITORY.
--- NOTE | 2019-09-17 15:32 | NUR ---
RESTING IN BED. DENIES NEEDS. STATES HAD BM. WILL CONTINUE TO MONITOR.
--- NOTE | 2019-09-17 16:51 | NUR ---
SITTING IN CHAIR AT BEDSIDE. DENIES NEEDS. CALL KEITA AND PERSONAL ITEMS IN REACH. WILL CONTINUE TO MONITOR.
[2019-09-17 16:58] VITALS: BP 105/57
--- NOTE | 2019-09-17 19:40 | NUR ---
SITTING UP IN BED WATCHING TV. ALERT AND ORIENTED X4. RATES PAIN IN LT GLUTEAL REGION 8. MEDICATED AT 1900 WITH NORCO PER OFFGOING STAFF. DRSG NOTED WITH SMALL AMOUNT OF BLOODY DRAINAGE. ABD IS DISTENDED. BS ACTIVE X4 QUADS. STATES SHE HAD A BM TODAY. DOESNT WANT MIRALAX TONIGHT. 1/2 NS @ 30 ML/HR INFUSING IN RT UPPER ARM PICC. REFUSES SCDS AND TELEMETRY. AMBULATORY. SR ELEVATED X2. CL IN REACH.
[2019-09-17 20:00] VITALS: BP 120/75
--- NOTE | 2019-09-17 21:30 | NUR ---
OFFERED BEDTIME SNACK. PT WENDY FRYE.
--- NOTE | 2019-09-17 22:52 | NUR ---
MEDICATED WITH NORCO FOR C/O GLUTEAL PAIN. CL IN REACH.
[2019-09-18] VITALS: BP 106/69
--- NOTE | 2019-09-18 02:44 | NUR ---
MEDICATED WITH NORCO FOR C/O GLUTEAL FOLD PAIN RATING 10. CL IN REACH.
[2019-09-18 04:00] VITALS: BP 109/63
[2019-09-18 05:58] LABS: ALKALINE PHOSPHATASE 84 U/L (46-116); CALC OSMOLALITY 281 mosm/kg (275-300); CALCIUM 8.4 mg/dL (8.5-10.1); CARBON DIOXIDE 34.7 mmol/L (21.0-32.0); CHLORIDE - SERUM 101 mmol/L (98-107); CREATININE - SERUM 0.5 mg/dL (0.6-1.3); GLUCOSE 160 mg/dL (74-106); POTASSIUM - SERUM 4.3 mmol/L (3.5-5.1); PROTEIN - SERUM 5.4 g/dL (6.4-8.2); SODIUM 140 mmol/L (136-145); UREA NITROGEN 13 mg/dL (7-18); eGFR NON AFRICAN AMERICAN > 90 mL/min (90-120)
[2019-09-18 06:01] LABS: ALT (SGPT) 36 U/L (10-68)
[2019-09-18 06:09] LABS: BASOPHILS 0.3 % (0-2); EOSINOPHILS 1.7 % (0-7); HEMATOCRIT 32.2 % (36.0-48.0); HEMOGLOBIN 10.2 g/dL (12-16); IMMATURE GRANULOCYTES 2.2 % (0-5); LYMPHOCYTES 31.9 % (15-50); MCH 26.8 pg (26.0-34.0); MCHC 31.7 g/dL (31.0-37.0); MCV 84.5 fL (80.0-100.0); MEAN PLATELET VOLUME 8.6 fL (7.4-10.4); MONOCYTES 12.4 % (2-11); NEUTROPHILS 51.5 % (40-80); PLATELET COUNT 304 10x3/uL (130-400); RBC 3.81 10x6/uL (4.00-5.40); RDW 16.7 % (11.5-14.5)
--- NOTE | 2019-09-18 06:43 | NUR ---
MEDICATED WITH NORCO FOR C/O GLUTEAL FOLD PAIN RATING 10. CL IN REACH.
[2019-09-18 08:36] VITALS: BP 105/68
--- NOTE | 2019-09-18 09:13 | NUR ---
PT LYING IN BED STATED SHE DID NOT SLEEP TOO WELL LAST NIGHT ASKED TO HAVE DOOR SHUT, NO NEEDS VOICED NO S/S OF DISTRESS, CONTINUE WITH PLAN OF CARE
[2019-09-18 09:58] LABS: % SATURATION 12 % (15-55); IRON 26 ug/dl (35-150); TOTAL IRON BIND CAPACITY 215 ug/dl (260-445); UNSAT IRON BIND CAPACITY 189 ug/dl (150-375)
--- NOTE | 2019-09-18 10:03 | NUR ---
RECEIVED MESSAGE TO HAVE VASC ACCESS NURSE PULL PICC 4CM AND REPEAT CXR, CALL CRISTY, IN MEETING ADVISED I WILLL CALL BACK
--- NOTE | 2019-09-18 10:58 | NUR ---
PT IS WITHOUT DISTRESS.RT AT BEDSIDE.CALL LIGHT IN REACH
[2019-09-18 12:48] VITALS: BP 103/66
[2019-09-18 16:30] VITALS: BP 98/59
--- NOTE | 2019-09-18 19:25 | NUR ---
PT SITTING UP IN BED WITHOUT DISTRESS, AOX4. RIGHT UPPER ARM PICC INFUSING NS @ 30. DENIES NEEDS AT THIS TIME. CL IN REACH, WILL CTM
[2019-09-18 20:00] VITALS: BP 95/63
--- NOTE | 2019-09-18 20:45 | NUR ---
PT REQUESTED NORCO, STATES PAIN IN PERINEUM 07/08. GAVE NORCO ORDERED. PT CURRENTLY EATING COOKIES, MILK, CHEETOS AND M&MS SHE GOT FROM VENDING MACHINE. WILL CHECK FSBS WHEN FINISHED.
--- NOTE | 2019-09-18 21:35 | NUR ---
FSBS 167, GAVE ORDERED 15 UNITS NPH. PT REFUSED LISPRO, STATING SHE DOES NOT NEED OR WANT IT. WILL CTM
[2019-09-19] VITALS: BP 92/69
--- NOTE | 2019-09-19 01:55 | NUR ---
PT REQUESTED AND GIVEN NORCO FOR PAIN 8/10 IN PERINEUM. WILL CTM
[2019-09-19 04:00] VITALS: BP 108/63
[2019-09-19 06:20] LABS: BASOPHILS 0.4 % (0-2); EOSINOPHILS 1.4 % (0-7); HEMATOCRIT 32.8 % (36.0-48.0); HEMOGLOBIN 10.2 g/dL (12-16); IMMATURE GRANULOCYTES 3.7 % (0-5); LYMPHOCYTES 33.1 % (15-50); MCHC 31.1 g/dL (31.0-37.0); MEAN PLATELET VOLUME 8.2 fL (7.4-10.4); MONOCYTES 12.4 % (2-11); RBC 3.78 10x6/uL (4.00-5.40); RDW 17.4 % (11.5-14.5); WBC 8.1 10x3/uL (4.8-10.8)
[2019-09-19 06:22] LABS: MCV 86.8 fL (80.0-100.0); PLATELET COUNT 240 10x3/uL (130-400)
[2019-09-19 06:49] LABS: ALBUMIN 2.1 g/dL (3.4-5.0); ALKALINE PHOSPHATASE 101 U/L (46-116); BILIRUBIN - TOTAL 0.12 mg/dL (0.2-1.3); CALCIUM 8.5 mg/dL (8.5-10.1); CARBON DIOXIDE 32.8 mmol/L (21.0-32.0); CHLORIDE - SERUM 100 mmol/L (98-107); CREATININE - SERUM 0.5 mg/dL (0.6-1.3); POTASSIUM - SERUM 4.3 mmol/L (3.5-5.1); PROTEIN - SERUM 5.5 g/dL (6.4-8.2); SODIUM 136 mmol/L (136-145); UREA NITROGEN 15 mg/dL (7-18); eGFR NON AFRICAN AMERICAN > 90 mL/min (90-120)
[2019-09-19 06:52] LABS: ALT (SGPT) 46 U/L (10-68); CALC OSMOLALITY 279 mosm/kg (275-300); GLUCOSE 218 mg/dL (74-106)
[2019-09-19 08:26] VITALS: BP 103/64
--- NOTE | 2019-09-19 08:37 | NUR ---
PATIENT ASLEEP IN BED HAD TO WAKE HER FOR MORNING MEDS AND INSULIN CHECK, NO NEEDS VOICED, CONTINUE WITH PLAN OF CARE
[2019-09-19 12:24] VITALS: BP 115/69
[2019-09-19] MEDS ORDERED: GLUCOPHAGE500 MG PO (16:53)
[2019-09-19] MEDS ORDERED: GLIMEPIRIDE4 MG PO (16:53)
[2019-09-19] MEDS ORDERED: LEVOFLOXACIN500 MG PO (16:54)
[2019-09-19 17:19] VITALS: BP 100/59
--- NOTE | 2019-09-19 18:09 | NUR ---
PICC LINE REMOVED BY JENIFFER PAGE RN. CDI. GAVE DC INSTRUCTIONS. VERBALIZED UNDERSTANDING. TOLD TO CALL TOMORROW FOR DR APPOINTMENT AND IF/WHEN SHE IS TO RETURN TO WORK. REFUSED WHEELCHAIR DOWN.
--- NOTE | 2019-09-20 09:44 | MORECARE ---
CASE MANAGEMENT DISCHARGE SUMMARY PATIENT: BECKA OLSON UNIT: [id number] ADM DATE: 09/12/19 AGE: 39 : [birth year] SEX: F ROOM/BED: D.9765 AUTHOR: CHASIDY SINGH PHYSICIAN: REFERRING PHYSICIAN: SAEED CASTAÑEDA MD DATE OF SERVICE: 09/20/19 Discharge Plan Patient Name: BECKA OLSON Facility: [facility]:[place] : 1980 Planned Disposition: Home Anticipated Discharge Date: Discharge Date: 09/19/2019 Expected LOS: Initial Reviewer: [email or web address] Initial Review Date: 09/12/2019 Generated: 09/20/19 10:44 am DCP- Discharge Planning Updated by [email or web address]: Deb Blackwell on 09/13/19 6:[address] Patient Name: BECKA OLSON Admission Status: ER Accout number: [id number] Admission Date: 09-12-2019 : 1980 Admission Diagnosis: Attending: SAEED CASTAÑEDA Current LOS: 1 Anticipated DC Date: Planned Disposition: Home Primary Insurance: MEDICAID [place] PENDING Discharge Planning Comments: CM met with patient to complete initial dc planning assessment. CM educated patient on the CM role and verbal consent given by patient to complete assessment. Patient lives at home with her fianc? where she is independent with her care. At discharge patient plans to return home and feels this is a safe discharge. CM discussed availability of home health, rehab services, and medical equipment. Her fianc? will drive her home. Patient states that she doesn't have a glucometer or any testing supplies to check B/S. Patient also stated that she hasn't had any of her medications in over a month d/t not having insurance. IIIMOBI has been up to see patient and she has Medicaid pending. Patient may need assistance with medications on d/c. CM explained to patient that she can get a glucometer and supplies at [facility] for a very reasonable maria. Patient denied known discharge needs at this time. CM will continue to follow and will assist as needed with dc plans/needs. Chin Strap Sewer: Deb Blackwell DCP- Discharge Planning Updated by [email or web address]: Deb Blackwell on 09/12/19 10:[address] CM attempted to visit with patient she is too drowsy at this time for discharge planning assessment. CM will attempt to reassess at a later time. CM will continue to follow and assist as needed with discharge planning / needs. DCPIA - Discharge Planning Initial Assessment Updated by [email or web address]: Deb Blackwell on 09/13/19 7:10 pm * Is the patient Alert and Oriented? Yes * How many steps to enter\exit or inside your home? * PCP KEVIN * Pharmacy [facility] * Preadmission Environment Home with Family * ADLs Independent * Equipment None * List name and contact numbers for known caregivers / representatives who currently or will assist patient after discharge: KRISTEN JUAREZ - [phone] * Community resources currently utilized None * Additional services required to return to the preadmission environment? No * Can the patient safely return to the preadmission environment? Yes * Has this patient been hospitalized within the prior 30 days at any hospital? No Last DP export: 09/13/19 6:21 Patient Name: BECKA OLSON Page 54035 at 0944 All edits/amendments must be made on the electronic document DICTATION DATE: 09/20/19943 SYSTEM AUDITOR: ABEBE 09/20/19943 RPT#: [id number] DC DATE:09/19/19 STATUS: DIS IN [facility] [address] [place] [address] END OF REPORT
--- NOTE | 2019-09-21 13:49 | OP ---
PATIENT NAME: BECKA OLSON MEDICAL RECORD: [id number] :[birth year] LOCATION:D.MS [id number] ADMISSION DATE:09/12/19 SURGEON: JACQUELYN OLIVAS MD DATE OF OPERATION: 09/15/2019 PREOPERATIVE DIAGNOSES: 1. Left gluteal abscess. 2. Diabetes mellitus. 3. Diabetic ketoacidosis. POSTOPERATIVE DIAGNOSES: 1. Left gluteal abscess. 2. Diabetes mellitus. 3. Diabetes ketoacidosis. PROCEDURE: I&D of left gluteal abscess. SURGEON: Jacquelyn Olivas MD REPORT OF PROCEDURE: The patient was placed in lithotomy position and the perineal region was prepped and draped in sterile fashion. An oblique incision was made overlying the area of fluctuance and there was a large return of purulent material. Cultures were taken times 2. We then probed the wound and look for any fistulous tracts or undermining, which there was a minimal amount. There did not appear to be any fistulization to the vagina or the rectum. We then irrigated out the wound with peroxide and saline solution and then packed the wound with peroxide soap 4x4. COMPLICATIONS: None. CONDITION: Stable. ANESTHESIA: General endotracheal. BLOOD LOSS: Minimal. TRANSINT:[id number] Voice Confirmation ID: [id number] DOCUMENT ID: [id number] JACQUELYN OLIVAS MD at 1349 CC: [id number] DICTATION DATE: 09/15/19 1102 LABORER GENERAL: 09/15/19 1139 DIS IN 09/19/19 [address] [place] [address]
[2019-09-22 19:08] LABS: AEROBE ID Final report (())
== END 2019-09-19 18:11 | disposition home or self-care (01) | DRG 871 ==
LOC: D.ER 22:56 → D.ICU 09-12 00:32 → D.MS 09-15 15:35
PROVIDERS: Family Medicine; Internal Medicine Nephrology; Surgery; ADMIT Family Medicine; ATTEND Family Medicine
PROC: 0H98XZZ Drainage of Buttock Skin, External Approach (ICD-10-PCS; principal; 2019-09-15 10:30)
DX: A41.9 Sepsis, unspecified organism (principal); E11.10 Type 2 diabetes mellitus with ketoacidosis without coma; L03.317 Cellulitis of buttock; E87.1 Hypo-osmolality and hyponatremia; D64.9 Anemia, unspecified; F17.200 Nicotine dependence, unspecified, uncomplicated

== ENCOUNTER 2020-01-13 12:45 | Inpatient (IN) | payer MEDICAID ==
[2020-01-13] VITALS (9 sets, daily range): BP systolic 115–141; BP diastolic 67–87; BMI 24.0
[~2020-01-13] VITALS: Ht 152.4 cm; Wt 63.2 kg
[2020-01-13 13:41] LABS: BILIRUBIN NEGATIVE (NEGATIVE); GLUCOSE 1000 mg/dL (NEGATIVE); HCG SERUM NEGATIVE (NEGATIVE); KETONE MODERATE mg/dL (NEGATIVE); NITRITE NEGATIVE (NEGATIVE); UROBILINOGEN NORMAL (NORMAL)
[2020-01-13 13:42] LABS: BACTERIA FEW /hpf (NEGATIVE); EPITHELIAL CELLS 0-5 /hpf (0-5); RED CELLS - URINE 0-5 /hpf (0-5); WHITE CELLS - URINE 0-5 /hpf (NEGATIVE)
[2020-01-13 13:43] LABS: AMORPHOUS SEDIMENT >1+ /lpf (NONE SEEN)
--- NOTE | 2020-01-13 13:44 | NUR ---
POC GLUCOSE 519
[2020-01-13 13:45] LABS: BASOPHILS 0.4 % (0-2); EOSINOPHILS 0.5 % (0-7); HEMATOCRIT 41.3 % (36.0-48.0); HEMOGLOBIN 12.6 g/dL (12-16); IMMATURE GRANULOCYTES 3.4 % (0-5); LYMPHOCYTES 19.6 % (15-50); MCH 27.5 pg (26.0-34.0); MCHC 30.5 g/dL (31.0-37.0); MCV 90.2 fL (80.0-100.0); MEAN PLATELET VOLUME 8.5 fL (7.4-10.4); NEUTROPHILS 75.1 % (40-80); PLATELET COUNT 539 10x3/uL (130-400); RBC 4.58 10x6/uL (4.00-5.40); RDW 15.6 % (11.5-14.5); WBC 18.6 10x3/uL (4.8-10.8)
[2020-01-13 14:09] LABS: ALBUMIN 2.7 g/dL (3.4-5.0); ANION GAP 36.8 mmol/L (8-16); BILIRUBIN - TOTAL 0.4 mg/dL (0.2-1.3); CALCIUM 8.1 mg/dL (8.5-10.1); CREATININE - SERUM 1.1 mg/dL (0.6-1.3); MAGNESIUM - SERUM 1.7 mg/dL (1.8-2.4); POTASSIUM - SERUM 3.6 mmol/L (3.5-5.1); PROTEIN - SERUM 6.7 g/dL (6.4-8.2); THYROID STIMULATING HORMONE 1.25 uIU/mL (0.36-3.74)
[2020-01-13 14:11] LABS: CARBON DIOXIDE 6.8 mmol/L (21.0-32.0)
--- NOTE | 2020-01-13 14:39 | NUR ---
POC GLUCOSE 518
[2020-01-13 15:09] LABS: CHOL - HDL RATIO 8.1 ratio (2.3-4.1); CHOLESTEROL, TOTAL 267 mg/dL (0-200); HDL CHOLESTEROL 33 mg/dL (32-96)
[2020-01-13 15:10] LABS: TRIGLYCERIDE 600 mg/dL (30-200)
[2020-01-13 15:23] LABS: UDS - AMPHET NEGATIVE QUAL (NEGATIVE); UDS - BARB NEGATIVE QUAL (NEGATIVE); UDS - BENZO NEGATIVE QUAL (NEGATIVE); UDS - COCAINE NEGATIVE QUAL (NEGATIVE); UDS - OPIATE NEGATIVE QUAL (NEGATIVE); UDS - PCP NEGATIVE QUAL (NEGATIVE); UDS - THC NEGATIVE QUAL (NEGATIVE)
--- NOTE | 2020-01-13 15:37 | NUR ---
PT GAVE VERBAL CONSENT TO DISCUSS HER CARE WITH HER SO; HE WAS CALLED AND UPDATED ON HER CARE; PT WAS C/O ABDM PAIN; EDP NOTIFIED AND MORPHINE ORDERED. PT IS AWAKE AND ALERT AND RESPONDS APPROPRIATELY.
--- NOTE | 2020-01-13 15:39 | NUR ---
POC GLUCOSE 365; URINE OUTPUT 1400MLS
--- NOTE | 2020-01-13 17:26 | NUR ---
POC GLUCOSE 344
--- NOTE | 2020-01-13 18:44 | NUR ---
CVL PLACED TO RIGHT NECK PER DR FAGAN. DR FAGAN EXAMINED WOUND IN LABIA WITH NURSE PRESENT. EXPLAINED TO THE PT THAT SHE NEEDED SURGERY TOMORROW TO CLEAN THAT WOUND OUT. DR FAGAN DISCUSSED WITH DR SILVERMAN. PT IN DKA. ON INSULIN DRIP. ER NURSE REPORTED THAT PT HAD GOTTEN 3 LITERS BOLUS AND RECEIVED CLEOCIN IN ER. BLOOD SUGAR CHECKED WHEN PT RECEIVED TO FLOOR. 331. HARKINS IN PLACE. SILVER NECKLACE WITH HEART CHARM PLACED IN BLUE CONTAINER WITH PT IDENTIFIERS. SHOWED PT AND PUT AT BEDSIDE.
--- NOTE | 2020-01-13 19:20 | NUR ---
SPOKE WITH DR FAGAN AT THIS TIME CVL IN RIGHT POSITION GAVE OK TO USE AT THIS TIME
[2020-01-13 20:24] LABS: CALCIUM 7.3 mg/dL (8.5-10.1); CHLORIDE - SERUM 106 mmol/L (98-107); SODIUM 140 mmol/L (136-145); TROPONIN-I 0.049 ng/mL (0.000-0.060)
[2020-01-13 20:27] LABS: CALC OSMOLALITY 284 mosm/kg (275-300); CREATININE - SERUM 0.6 mg/dL (0.6-1.3); GLUCOSE 193 mg/dL (74-106); MAGNESIUM - SERUM 1.2 mg/dL (1.8-2.4); UREA NITROGEN 16 mg/dL (7-18); eGFR NON AFRICAN AMERICAN > 90 mL/min (90-120)
[2020-01-13 20:29] LABS: CARBON DIOXIDE 11.5 mmol/L (21.0-32.0); POTASSIUM - SERUM 2.7 mmol/L (3.5-5.1)
--- NOTE | 2020-01-13 23:42 | NUR ---
REASSESSMENT COMPLETED SEE FLOWSHEET. PT C/O PAIN 09/07 - SEE MAR FOR PAIN ASSESSMENT AND PRN MEDICATION ADMINISTRATION. PT C/O NAUSEA, PROVIDED WITH EMESIS BAG AT THIS TIME.
[2020-01-14] VITALS (23 sets, daily range): BP systolic 108–155; BP diastolic 68–131
--- NOTE | 2020-01-14 00:10 | NUR ---
PT CALLING FOR HELP - STATING SHE NEEDS AN ICE CHIP AND TO GET OUT OF BED. ATTEMPTED TO REORIENT PATIENT TO TIME PLACE AND SITUATION. PT BEGAN SCREAMING STATING "I CAN HAVE ICE WHENEVER THE FUCK I WANT" ATTEMPTING TO CRAWL OVER THE SIDE RAIL OF THE BED. PT SPEECH SLURRED - SHE IS CURRENTLY PULLING AT CENTRAL LINE, ATTEMPTING TO REMOVE ICU MONITORS. 3 NURSES AT BEDSIDE, PT RESTRAINED FOR MEDICAL SAFETY PER PHYSICIAN ORDERS . PT BECAME COMBATIVE WHEN ATTEMPTING TO PLACE INTO RESTRAINTS. HITTING, KICKING, BITING, AND SPITTING AT STAFF.
--- NOTE | 2020-01-14 00:55 | NUR ---
DR FAGAN CONTACTED AGAIN REGARDING PATIENT SAFETY - PT FIGHTING RESTRAINTS, SHE BIT NC IN HALF AND ATTEMPTED TO BITE RESPIRATORY THERAPIST AT BEDSIDE. MANAGER ONLINE AND CHARGE NURSE AT BEDSIDE, ORDERS RECEIVED TO INTUBATE PATIENT FOR SURGERY IN THE AM. SALINAS ORDER RECEIVED SEE EMAR FOR ADMINISTRATION DETAILS. ANESTHESIA IS IN SURGERY CURRENTLY, WILL CONTINUE CURRENT CARE UNTIL THEY ARE AVAILABLE FOR INTUBATION.
--- NOTE | 2020-01-14 01:15 | NUR ---
PT CURRENTLY ON INSULIN DRIP, 2 NURSES AT BEDSIDE FOR FSBS - PATIENT ATTEMPTING TO BITE AND SPIT ON NURSES. REORIENTATION ATTEMPTED. EXPLAINED TO PATIENT SHE IS ON AN INSULIN DRIP AND NOT CHECKING BLOOD SUGARS COULD BE A RISK TO HER LIFE. SHE STATED "I WOULD RATHER THAN HAVE MY FINGER POKED" PT CURRENTLY RESTRAINED. FINGER STICK OBTAINED AFTER FAILED REORIENTATION ATTEMPTS. INSULIN DRIP ADJUSTED PER PROTOCOL SEE FLOWSHEET.
--- NOTE | 2020-01-14 02:10 | NUR ---
ANTHESIA AND RESPIRATORY THERAPY AT BEDSIDE FOR INTUBATION PER PHYSICIAN ORDER. PT TOLERATED WELL. VSS STAT CHEST XRAY COMPLETED. SEDATION MEDICATION STARTED AT THIS TIME PER ORDER. SEE EMAR FOR ADMINISTRATION DETAILS. NURSE IV START RIGHT BREAST 20G DUE TO PATIENT PULLING CVL OUT OF PLACE. CPOC
--- NOTE | 2020-01-14 02:53 | NUR ---
REASSESSMENT COMPLETED SEE FLOWSHEET
[2020-01-14 03:00] LABS: UDS - AMPHET NEGATIVE QUAL (NEGATIVE); UDS - BARB NEGATIVE QUAL (NEGATIVE); UDS - BENZO NEGATIVE QUAL (NEGATIVE); UDS - COCAINE NEGATIVE QUAL (NEGATIVE); UDS - OPIATE POSITIVE QUAL (NEGATIVE); UDS - PCP NEGATIVE QUAL (NEGATIVE); UDS - THC NEGATIVE QUAL (NEGATIVE)
[2020-01-14 08:15] LABS: CALCIUM 7.9 mg/dL (8.5-10.1); CHLORIDE - SERUM 109 mmol/L (98-107); CREATININE - SERUM 0.6 mg/dL (0.6-1.3); MAGNESIUM - SERUM 1.2 mg/dL (1.8-2.4); SODIUM 140 mmol/L (136-145); UREA NITROGEN 13 mg/dL (7-18); eGFR NON AFRICAN AMERICAN > 90 mL/min (90-120)
[2020-01-14 08:16] LABS: CALC OSMOLALITY 280 mosm/kg (275-300); CARBON DIOXIDE 18.6 mmol/L (21.0-32.0); GLUCOSE 138 mg/dL (74-106); POTASSIUM - SERUM 3.3 mmol/L (3.5-5.1)
--- NOTE | 2020-01-14 10:28 | NUR ---
0700 AWAKE ALERT NO C/O PAIN REMAINS NPO FOR PROCEEDURE EDUXCATED PT ON PRE AND POST OP INSTRUCTIONS VERBALIZED UNDERSTANDING
--- NOTE | 2020-01-14 12:13 | NUR ---
0700 SEDATED ON VENT PROPOFOL ORAL AND FACIAL CARE PROVIDED HARKINS CARE PERFOREMED
[2020-01-14 12:27] LABS: CALC OSMOLALITY 277 mosm/kg (275-300); CALCIUM 7.8 mg/dL (8.5-10.1); CARBON DIOXIDE 18.8 mmol/L (21.0-32.0); CHLORIDE - SERUM 109 mmol/L (98-107); CREATININE - SERUM 0.6 mg/dL (0.6-1.3); MAGNESIUM - SERUM 1.2 mg/dL (1.8-2.4); POTASSIUM - SERUM 3.2 mmol/L (3.5-5.1); SODIUM 140 mmol/L (136-145); UREA NITROGEN 10 mg/dL (7-18); eGFR NON AFRICAN AMERICAN > 90 mL/min (90-120)
[2020-01-14 12:34] LABS: GLUCOSE 90 mg/dL (74-106)
--- NOTE | 2020-01-14 19:30 | NUR ---
SHIFT ASSESSMENT COMPLETED, PT IS NOT ADEQUATELY SEDATED, AGITATED AND DANGEROUS. ATTEMPTING TO PULL AT TUBES AND LINES EVEN THOUGH SHE IS RESTRAINED, ATTEMPTING TO KICK STAFF AND INTERFERING WITH MEDICAL PROCEDURES. ETT @ 18 - PREVIOUSLY NOTED AT 21 AT THE LIP. LUNG SOUNDS CLEAR, SPO2 SATURATION 100%. PATIENT IS TACHYCARDIC AND AFEBRILE. WILL CONTINUE TO CLOSELY MONITOR.
--- NOTE | 2020-01-14 19:57 | NUR ---
1100 PROPOFOL D/C R/T TRIGLYCERIDE LEVEL 600. STATRED FENTANYL AT SET RATE OF 50 MCG CONTINIOUS.
--- NOTE | 2020-01-14 19:57 | NUR ---
0900 DR HERNANDEZ ROUNDING ON PT
--- NOTE | 2020-01-14 19:58 | NUR ---
1300 VERSED STARTED AT 21ML PER HOUR
--- NOTE | 2020-01-14 19:59 | NUR ---
1500 TITRATING VERSED CHARTED ON IV FLOW SHEET CONTINUED WITH H;OURLY ACCUCHECKS PER PROTOCOL
--- NOTE | 2020-01-14 20:00 | NUR ---
STAT CHEST XRAY ORDERED FOR TUBE PLACEMENT - RT AT BEDSIDE
--- NOTE | 2020-01-14 20:00 | NUR ---
1700 DR FAGAN AT BEDSIDE INFORMED THAT CONSENTS ARE SIGNED VIA PHONE WITH HER SON, TERESE PALM
--- NOTE | 2020-01-14 21:29 | NUR ---
PAGED DR. HERNANDEZ AT THIS TIME REGARDING PATIENT STATUS
--- NOTE | 2020-01-14 21:38 | NUR ---
DR HERNANDEZ RETURNED CALL - NEW ORDERS RECEIVED
--- NOTE | 2020-01-14 23:15 | NUR ---
REASSESSMENT COMPLETED, PT ADEQUATELY SEDATED AT THIS TIME, ROUSES TO SPEECH DOES NOT FOLLOW COMMANDS, BECOMES AGITATED AND COMBATIVE WHEN AWAKE. VSS CPOC
[2020-01-15] VITALS (33 sets, daily range): BP systolic 90–117; BP diastolic 55–74; BMI 24.6
--- NOTE | 2020-01-15 02:50 | NUR ---
REASSESSMENT COMPLETED SEE FLOWSHEET
--- NOTE | 2020-01-15 05:30 | NUR ---
CHG BATH COMPLETED FULL LINEN CHANGE, HARKINS CARE COMPLETED VSS PT DID NOT TOLERATE WELL. WILL CONTINUE TO CLOSELY MONITOR
--- NOTE | 2020-01-15 05:45 | NUR ---
PT FAMILY CALLED UNABLE TO PROVIDE SECURITY CODE, INSTRUCTED HER TO CONTACT FAMILY IN ORDER TO GET THE SECURITY CALL IN CODE
[2020-01-15 08:51] LABS: BASOPHILS 0.2 % (0-2); EOSINOPHILS 0.5 % (0-7); HEMATOCRIT 31.7 % (36.0-48.0); HEMOGLOBIN 10.7 g/dL (12-16); IMMATURE GRANULOCYTES 0.4 % (0-5); LYMPHOCYTES 19.4 % (15-50); MCH 27.3 pg (26.0-34.0); MCHC 33.8 g/dL (31.0-37.0); MCV 80.9 fL (80.0-100.0); MONOCYTES 11.8 % (2-11); NEUTROPHILS 67.7 % (40-80); PLATELET COUNT 207 10x3/uL (130-400); RBC 3.92 10x6/uL (4.00-5.40); RDW 16.5 % (11.5-14.5); WBC 8.1 10x3/uL (4.8-10.8)
[2020-01-15 09:04] LABS: CALCIUM 7.5 mg/dL (8.5-10.1); CARBON DIOXIDE 23.1 mmol/L (21.0-32.0); CHLORIDE - SERUM 112 mmol/L (98-107); POTASSIUM - SERUM 3.1 mmol/L (3.5-5.1); SODIUM 142 mmol/L (136-145)
[2020-01-15 09:23] LABS: CALC OSMOLALITY 283 mosm/kg (275-300); CREATININE - SERUM 0.3 mg/dL (0.6-1.3); GLUCOSE 166 mg/dL (74-106); LIPASE 1326 U/L (73-393); UREA NITROGEN 5 mg/dL (7-18); eGFR NON AFRICAN AMERICAN > 90 mL/min (90-120)
--- NOTE | 2020-01-15 11:52 | NUR ---
0700 SEDATED WITH FENTANYL AND VERSED WHILE ON VENT RESPONDS TO TOUCH OPENS EYES TO VOICE MUTI FLUIDS INFUSING-REFER TO IV FLOW SHEET ASSESSMENT COMPLETE
--- NOTE | 2020-01-15 11:55 | NUR ---
0900 CONTINUING WITH HOURLY BLOOD SUGAR CHECKS FOLLOWING DKA INSULIN ADJUSTMENT FLOW SHEET PER PROTOCOL
--- NOTE | 2020-01-15 11:59 | NUR ---
1038 PRE-OP CALLED FROM OR STAFF PRE-OP MEDICATIONS GIVEN HELD PO ROBINOL NO OGT IN PLACE NOTIFIED ANESTHESIA THAT ROBINAL WAS NOT GIVEN
--- NOTE | 2020-01-15 12:00 | NUR ---
1148 OR STAFF AND ANESTHESIA PRRESENT TO TAKE PATIENT TO OR VIA BED REFILLED MILK COLLECTOR VERSED PUMP BEFORE PT LEFT FOR SURGERY BY DR FAGAN
--- NOTE | 2020-01-15 13:20 | NUR ---
1245 RETURNED FROM OR INITIATED FREQUENT VS CBS 53, REPEAT CBS [address] VAUGHN ORDER TO STOP INSULIN INFUSION AND PLACE ON EVERY 4 HOURS BLOOD SUGAR CHECKS, INSTRUCTED NOT TO TREAT BLOOD SUGAR
--- NOTE | 2020-01-15 13:43 | NUR ---
MICROmATRIX ACELL REF# [id number] LOT# [id number] S/N [id number] EXP 11/28/2021 USED IN PERINEAL ABSCESS WOUND MIXED WITH STERILE SALINE
--- NOTE | 2020-01-15 14:33 | OP ---
PATIENT NAME: BECKA OLSON MEDICAL RECORD: [id number] :[birth year] LOCATION:D.[facility] D.2305 ADMISSION DATE:01/13/20 SURGEON: MARGAUX FAGAN MD DATE OF OPERATION: 01/13/2020 PREOPERATIVE DIAGNOSES: 1. Necrotizing pancreatitis. 2. Diabetic ketoacidosis. 3. Lack of peripheral IV access. 4. Agitation. 5. Perineal abscess, rule out Fransisca's gangrene. POSTOPERATIVE DIAGNOSES: 1. Necrotizing pancreatitis. 2. Diabetic ketoacidosis. 3. Lack of peripheral IV access. 4. Agitation. 5. Perineal abscess, rule out Fransisca's gangrene. PROCEDURE: Insertion of right internal jugular triple lumen central venous catheter. SURGEON: Margaux Fagan MD HIGH SCHOOL MUSIC INSTRUCTOR: None. BLOOD LOSS: Minimal. ANESTHESIA: Local. The risks, possible complications, and alternatives to the procedure were explained to the patient. She elects to proceed. The patient is very anxious. This note is dictated on 01/14/2020, the operation itself took place on 01/13/2020. OPERATIVE COURSE: The patient was seen in her ICU room. There was a female nurse present for the entire procedure. The patient was positioned in the Trendelenburg position. The right chest and right neck were sterilely prepped and draped. Local anesthetic was used to infiltrate the skin and subcutaneous tissues at the base of the right neck. The right internal jugular vein was percutaneously accessed in an antegrade fashion. Guidewire was passed easily. A small skin yamilka was accomplished. A vessel dilator was used to dilate a subcutaneous tract. A 16-cm triple lumen central venous catheter was inserted to the hub. It was sutured in place times 2. All lumens flushed easily and aspirated dark, nonpulsatile blood. A stat portable chest x-ray revealed adequate placement of the central venous line. The patient became very agitated later in the evening and began biting and kicking and she pulled out all of her lines and became a threat to herself and to the personnel and for that reason she had to be intubated and sedated and despite thats he is still writhing around in bed and despite the restraints, I am very concerned that she might pull out her endotracheal tube. OPERATIVE REPORT [id number] BECKA OLSON Anyhow, the central venous line was pulled out and I will ask the vascular access nurse to consider placing a PICC catheter tomorrow. TRANSINT:[id number] Voice Confirmation ID: [id number] DOCUMENT ID: [id number] MARGAUX FAGAN MD at 1433 CC: [id number] DICTATION DATE: 01/14/20 1749 TEAM AUTOMOBILE ASSEMBLER: 01/15/20 0431 ADM IN [facility] [address] [id number]
[2020-01-15 17:39] LABS: POTASSIUM - SERUM 3.5 mmol/L (3.5-5.1)
[2020-01-15 17:40] LABS: MAGNESIUM - SERUM 1.6 mg/dL (1.8-2.4)
--- NOTE | 2020-01-15 18:59 | MORECARE ---
CASE MANAGEMENT DISCHARGE SUMMARY PATIENT: BECKA OLSON UNIT: [id number] ADM DATE: 01/13/20 AGE: 39 : [birth year] SEX: F ROOM/BED: D.2305 AUTHOR: CHASIDY SINGH PHYSICIAN: REFERRING PHYSICIAN: KATELIN SILVERMAN MD DATE OF SERVICE: 01/15/20 Discharge Plan Patient Name: BECKA OLSON Facility: [facility]:[place] : 1980 Planned Disposition: Anticipated Discharge Date: Discharge Date: Expected LOS: Initial Reviewer: [email or web address] Initial Review Date: 01/13/2020 Generated: 01/15/20 7:59 pm Patient Name: BECKA OLSON Page [phone] at 1859 All edits/amendments must be made on the electronic document DICTATION DATE: 01/15/201858 WELDING MACHINE FEEDER: ABEBE 01/15/201858 RPT#: [id number] DC DATE: STATUS: ADM IN [facility] [address] [place] [address] END OF REPORT
--- NOTE | 2020-01-15 19:00 | NUR ---
Report received from off going nurse. Pt is laying in bed intubated and sedated at this time. Initial assessment completed, see flowsheet for details. Pt moves self around bed. Oral care performed. No s/s of distress noted. Will continue to monitor.
--- NOTE | 2020-01-15 19:07 | MORECARE ---
CASE MANAGEMENT DISCHARGE SUMMARY PATIENT: BECKA OLSON UNIT: [id number] ADM DATE: 01/13/20 AGE: 39 : 82 SEX: F ROOM/BED: D.2305 AUTHOR: CHASIDY SINGH PHYSICIAN: REFERRING PHYSICIAN: KATELIN SILVERMAN MD DATE OF SERVICE: 01/15/20 Discharge Plan Patient Name: BECKA OLSON Facility: [facility]:[place] : 1980 Planned Disposition: Anticipated Discharge Date: Discharge Date: Expected LOS: Initial Reviewer: [email or web address] Initial Review Date: 01/13/2020 Generated: 01/15/20 8:07 pm Comments DCP- Discharge Planning Updated by [email or web address]: Deb Blackwell on 01/15/20 6:[address] CM attempted to contact patient's son Judah Hines left message but didn't get a return call. CM will continue to follow and assist as needed with discharge planning / needs. DCPIA - Discharge Planning Initial Assessment Updated by [email or web address]: Deb Blackwell on 01/15/20 7:02 pm * How many steps to enter\exit or inside your home? Last DP export: 01/15/20 5:59 p Patient Name: BECKA OLSON Page 60692 at 1907 All edits/amendments must be made on the electronic document DICTATION DATE: 01/15/201906 RN TRANSITIONAL: ABEBE 01/15/201906 RPT#: [id number] DC DATE: STATUS: ADM IN [facility] [address] [place] [address] END OF REPORT
--- NOTE | 2020-01-15 21:00 | NUR ---
Pt is laying in bed intubated and sedated. Oral care performed. NO s/s of distress. Will continue to monitor.
--- NOTE | 2020-01-15 23:00 | NUR ---
Reassessment completed, see flowsheet for details. Pt is laying in bed intubated and sedated. Oral care performed. No further needs noted at this time. No s/s of distress. Will continue to monitor.
[2020-01-16] VITALS (24 sets, daily range): BP systolic 86–125; BP diastolic 55–96
--- NOTE | 2020-01-16 01:00 | NUR ---
Pt is in bed intubated and sedated. At this time she is very agitated, increased Fentenyl drip, see flowsheet for details. No further needs noted. Will continue to monitor.
--- NOTE | 2020-01-16 01:30 | NUR ---
REPOSITIONED, ORAL CARE PROVIDED. VSS, NO S/S OF PAIN. CPOC.
--- NOTE | 2020-01-16 03:00 | NUR ---
Reassessment completed, see flowsheet for details. Pt is laying in bed intubated and sedated. Oral care performed. No s/s of distress noted. Will continue to monitor.
[2020-01-16 03:45] LABS: BASOPHILS 0.1 % (0-2); EOSINOPHILS 0.4 % (0-7); HEMATOCRIT 30.8 % (36.0-48.0); IMMATURE GRANULOCYTES 0.4 % (0-5); LYMPHOCYTES 15.9 % (15-50); MCHC 32.5 g/dL (31.0-37.0); MCV 83.2 fL (80.0-100.0); MEAN PLATELET VOLUME 7.9 fL (7.4-10.4); NEUTROPHILS 72.2 % (40-80); PLATELET COUNT 177 10x3/uL (130-400); WBC 8.5 10x3/uL (4.8-10.8)
[2020-01-16 03:57] LABS: CALC OSMOLALITY 282 mosm/kg (275-300); CALCIUM 7.5 mg/dL (8.5-10.1); CARBON DIOXIDE 24.5 mmol/L (21.0-32.0); CHLORIDE - SERUM 111 mmol/L (98-107); GLUCOSE 157 mg/dL (74-106); MAGNESIUM - SERUM 1.4 mg/dL (1.8-2.4); POTASSIUM - SERUM 3.3 mmol/L (3.5-5.1); SODIUM 142 mmol/L (136-145); UREA NITROGEN 4 mg/dL (7-18)
[2020-01-16 04:34] LABS: CREATININE - SERUM 0.5 mg/dL (0.6-1.3); LIPASE 406 U/L (73-393); PHOSPHOROUS 0.9 mg/dL (2.5-4.9); eGFR NON AFRICAN AMERICAN > 90 mL/min (90-120)
--- NOTE | 2020-01-16 07:00 | NUR ---
UPON ENTRANCE OF ROOM, PATIENT HAD TAKEN OFF DRESSING AND IT WAS LAYING ON THE BED. TRIED TO REAPPLY IT BUT IT WOULD NO LONGER STICK. PATIENT IS MOVING AROUND IN THE BED AND IS PERPENDICULAR TO THE BED KICKING HER LEGS OUT AND IS STIFF AND WONT LET ANYONE MOVE HER. PATIENT OPENS EYES. NO ACUTE DISTRESS. TRYING TO PULL AT LINES AND TUBES. SEE ASSESSMENT. SEE ADLS.
--- NOTE | 2020-01-16 09:18 | NUR ---
patient rotated for comfort. no acute distress. moving around in the bed pulling at her restraints. trying to raise up in the bed. will continue rose onitor
[2020-01-16 10:09] LABS: HEPATITIS C ANTIBODY <0.1 S/CO RAT (0.0-0.9)
--- NOTE | 2020-01-16 11:32 | NUR ---
took out patient nose ring per dr chu. placed in green box with other jewelry
--- NOTE | 2020-01-16 11:38 | NUR ---
dr chu at bedside. new order to place og tube
[2020-01-16 14:30] LABS: MAGNESIUM - SERUM 1.8 mg/dL (1.8-2.4); PHOSPHOROUS 3.1 mg/dL (2.5-4.9); POTASSIUM - SERUM 4.5 mmol/L (3.5-5.1)
--- NOTE | 2020-01-16 15:00 | NUR ---
no changes at this time. see reassessment
--- NOTE | 2020-01-16 17:01 | NUR ---
tapan carrasquillo at bedside. passcode given.
--- NOTE | 2020-01-16 17:02 | MORECARE ---
CASE MANAGEMENT DISCHARGE SUMMARY PATIENT: BECKA OLSON UNIT: [id number] ADM DATE: 01/13/20 AGE: 39 : 82 SEX: F ROOM/BED: D.2305 AUTHOR: CHASIDY SINGH PHYSICIAN: REFERRING PHYSICIAN: KATELIN SILVERMAN MD DATE OF SERVICE: 01/16/20 Discharge Plan Patient Name: BECKA OLSON Facility: [facility] : 1980 Planned Disposition: Home Anticipated Discharge Date: Discharge Date: Expected LOS: Initial Reviewer: [email or web address] Initial Review Date: 01/16/2020 Generated: 01/16/20 6:02 pm DCP- Discharge Planning Updated by [email or web address]: Deb Blackwell on 01/15/20 6:[address] CM attempted to contact patient's son Terese Palm left message but didn't get a return call. CM will continue to follow and assist as needed with discharge planning / needs. DCPIA - Discharge Planning Initial Assessment Updated by [email or web address]: Deb Blackwell on 01/16/20 5:01 pm * Is the patient Alert and Oriented? No * How many steps to enter\exit or inside your home? * PCP NO PCP * Pharmacy [facility] * Preadmission Environment Home with Family * ADLs Independent * Equipment None * List name and contact numbers for known caregivers / representatives who currently or will assist patient after discharge: KRISTEN BAUTISTA ANN - [phone] TERESE PALM - SON - MESSAGE # [phone] * Verbal permission to speak to the caregivers and representatives has been obtained from the patient. N/A * Community resources currently utilized None * Additional services required to return to the preadmission environment? No * Can the patient safely return to the preadmission environment? Yes * Has this patient been hospitalized within the prior 30 days at any hospital? No Last DP export: 01/15/20 6:07 p Patient Name: BECKA LOSON Page 21985 at 1702 All edits/amendments must be made on the electronic document DICTATION DATE: 01/16/20 1702 PLANT ELECTRICIAN: ABEBE 01/16/20 1702 RPT#: [id number] DC DATE: STATUS: ADM IN [facility] [address] [place] [address] END OF REPORT
--- NOTE | 2020-01-16 17:17 | MORECARE ---
CASE MANAGEMENT DISCHARGE SUMMARY PATIENT: BECKA OLSON UNIT: [id number] ADM DATE: 01/13/20 AGE: 39 : 82 SEX: F ROOM/BED: D.2306 AUTHOR: FRANCISCO,DOC PHYSICIAN: REFERRING PHYSICIAN: KATELIN SILVERMAN MD DATE OF SERVICE: 01/16/20 Discharge Plan Patient Name: BECKA OLSON Facility: [facility]:[place] : 1980 Planned Disposition: Home Anticipated Discharge Date: Discharge Date: Expected LOS: Initial Reviewer: [email or web address] Initial Review Date: 01/16/2020 Generated: 01/16/20 6:17 pm Comments DCP- Discharge Planning Updated by [email or web address]: Deb Blackwell on 01/16/20 4:[address] Patient Name: BECKA OLSON Admission Status: ER Accout number: [id number] Admission Date: 01-13-2020 : 1980 Admission Diagnosis:SEPSIS, UNSPECIFIED ORGANISM Attending: KATELIN SILVERMAN Current LOS: 3 Anticipated DC Date: Planned Disposition: Home Primary Insurance: UNINSURED DISCOUNT PLAN Discharge Planning Comments: CM called and spoke with patient's marta Bautista [phone] this is also the message number for the patient's son Terese Palm. Patient is currently sedated on vent. CM spoke to Kristen to complete initial dc planning assessment. CM educated patient on the CM role and verbal consent given by patient to complete assessment. Patient lives at home with her Kristen where she is independent with her care. At discharge patient plans to return home and feels this is a safe discharge. CM discussed availability of home health, rehab services, and medical equipment. Family will drive her home upon discharge. Kristen stated that the patient usually has [employer] with [place] [facility] but this may have lapsed. He also stated that the patient doesn't have a glucometer or testing supplies at home. He stated that she is not compliant with taking her meds as ordered. Kristen denied known discharge needs at this time. CM called and spoke with Lorenzo in [employer] and he stated that patient had a listing under name of [place] but insurance had lapsed in 02/2019. [employer] will come to speak to patient once she is off vent. CM will continue to follow and will assist as needed with dc plans/needs Instructor Creeler: Deb Blackwell DCP- Discharge Planning Updated by [email or web address]: Deb Rosalva on 01/15/20 6:[address] CM attempted to contact patient's son Terese Palm left message but didn't get a return call. CM will continue to follow and assist as needed with discharge planning / needs. DCPIA - Discharge Planning Initial Assessment Updated by [email or web address]: Deb Rosalva on 01/16/20 5:01 pm * Is the patient Alert and Oriented? No * How many steps to enter\exit or inside your home? * PCP NO PCP * Pharmacy [facility] * Preadmission Environment Home with Family * ADLs Independent * Equipment None * List name and contact numbers for known caregivers / representatives who currently or will assist patient after discharge: KRISTEN BAUTISTA - [place] - [phone] TERESE PALM - SON - MESSAGE # [phone] * Verbal permission to speak to the caregivers and representatives has been obtained from the patient. N/A * Community resources currently utilized None * Additional services required to return to the preadmission environment? No * Can the patient safely return to the preadmission environment? Yes * Has this patient been hospitalized within the prior 30 days at any hospital? No Last DP export: 01/16/20 4:02 p Patient Name: BECKA OLSON Page 52684 at 1717 All edits/amendments must be made on the electronic document DICTATION DATE: 01/16/201716 LIVESTOCK SLAUGHTERER: ABEBE 01/16/201716 RPT#: [id number] DC DATE: STATUS: ADM IN [facility] [address] [facility] [place] [address] END OF REPORT
--- NOTE | 2020-01-16 19:30 | NUR ---
PT RESTLESS/AGITATED. SEDATION INFUSING, BILATERAL WRIST RESTRAINTS IN USE. PT DOES NOT FOLLOW COMMANDS. INTUBATED, LUNG SOUNDS CLEAR/DIMINISHED, SPO2 97. ORAL CARE PROVIDED. S1S2 HEARD, PERIPHERAL PULSES PRESENT. BOWEL SOUNDS ACTIVE IN ALL QUADRANTS. HARKINS CATH INTACT. LT LABIA INCISION WITH DRSG CDI. PT REPOSITIONED WITH PROMINENCES BRIDGED. VSS. NO S/S OF PAIN. ROOM VISIBLE FROM NURSES STATION. CPOC.
--- NOTE | 2020-01-16 20:45 | NUR ---
PT MOTHER AND DAUGHTER AT BEDSIDE, FAMILY CLAIMS SHE IS LEGALLY TO GREGORIA BRUSH WHO LIVES IN [place]. FAMILY DOES NOT WANT INFORMATION PROVIDED TO PRIYANK, WHO CLAIMS TO BE THE FIANCE. FAMILY DOES NOT WANT PRIYANK TO BE ALLOWED IN AT VISITATION. SIGN STATING, "SEE NURSE BEFORE ENTERING ROOM" IS PLACED ON PT DOOR. HUSBANDS PHONE NUMBER OBTAINED.
--- NOTE | 2020-01-16 21:30 | NUR ---
PT REPOSITIONED WITH PROMINENCES BRIDGED. ORAL CARE PROVIDED. HARKINS CARE COMPLETED. VSS, CPOC.
--- NOTE | 2020-01-16 23:30 | NUR ---
REASSESSMENT COMPLETE, SEE FLOWSHEET. PT SEDATED, DOES NOT FOLLOW COMMANDS, BECOMES AGITATED EASILY WITH STIMULATION. PT REPOSITIONED WITH PROMINENCES BRIDGED. ORAL CARE PORIVIDED. VSS, NO S/S OF PAIN. CPOC.
[2020-01-17] VITALS (24 sets, daily range): BP systolic 87–134; BP diastolic 55–108
--- NOTE | 2020-01-17 01:30 | NUR ---
REPOSITIONED, ORAL CARE PROVIDED. VSS, CPOC.
--- NOTE | 2020-01-17 03:30 | NUR ---
REASSESSMENT COMPLETE, SEE FLOWSHEET FOR ALL FINDINGS. PT RESTLESS/AGITATED, DOES NOT FOLLOW COMMANDS. PT REPOSITIONED, NO S/S OF PAIN. ORAL CARE PROVIDED. VSS. CPOC.
--- NOTE | 2020-01-17 05:30 | NUR ---
PT REPOSITIONED, ORAL CARE PROVIDED. VSS, CPOC.
[2020-01-17 06:12] LABS: CALC OSMOLALITY 280 mosm/kg (275-300); CALCIUM 7.7 mg/dL (8.5-10.1); CARBON DIOXIDE 24.1 mmol/L (21.0-32.0); CHLORIDE - SERUM 110 mmol/L (98-107); CREATININE - SERUM 0.4 mg/dL (0.6-1.3); GLUCOSE 148 mg/dL (74-106); MAGNESIUM - SERUM 1.5 mg/dL (1.8-2.4); SODIUM 141 mmol/L (136-145); TRIGLYCERIDE 121 mg/dL (30-200); UREA NITROGEN 4 mg/dL (7-18); eGFR NON AFRICAN AMERICAN > 90 mL/min (90-120)
[2020-01-17 06:23] LABS: LIPASE 183 U/L (73-393); PHOSPHOROUS 2.1 mg/dL (2.5-4.9); POTASSIUM - SERUM 3.7 mmol/L (3.5-5.1)
--- NOTE | 2020-01-17 06:38 | NUR ---
PHARMACY NOTIFIED OF NEED OF PHOSPHORUS
[2020-01-17 06:52] LABS: BASOPHILS 0.1 % (0-2); EOSINOPHILS 1.6 % (0-7); HEMOGLOBIN 8.9 g/dL (12-16); IMMATURE GRANULOCYTES 0.3 % (0-5); LYMPHOCYTES 17.7 % (15-50); MCHC 31.8 g/dL (31.0-37.0); MCV 84.8 fL (80.0-100.0); MEAN PLATELET VOLUME 8.6 fL (7.4-10.4); NEUTROPHILS 69.3 % (40-80); PLATELET COUNT 169 10x3/uL (130-400); RDW 17.4 % (11.5-14.5); WBC 7.7 10x3/uL (4.8-10.8)
--- NOTE | 2020-01-17 07:00 | NUR ---
PT REPORT RECEIVED FROM ASSISTANT WOMEN'S SOCCER COACH NURSE. NO ACUTE SIGNS OF DISTRESS NOTED. PT INTUBATED AND SEDATED. SHIFT ASSESSMENT COMPLETED. WILL CONTINUE TO MONITOR
--- NOTE | 2020-01-17 09:00 | NUR ---
PT RESTING IN BED. ORAL CARE PROVIDED. PT UNABLE TO FOLLOW COMMANDS. WILL CONITNUE TO MONITOR
--- NOTE | 2020-01-17 09:13 | NUR ---
Nutrition follow-up: Pt remains intubated, sedated with fentynal 2/2 elevated TG - > 600 OGT placed 01/16/20 ProcalAmine PPN @ 30 ml/hr Labs reviewed WT: 135# Recommend starting Pulmocare @ 25 ml/hr with increase to goal rate of 45 ml/hr with 25 ml H2O flush Q hour. RDN following.
--- NOTE | 2020-01-17 11:00 | NUR ---
PT RESTING IN BED COMFORTABLY.
--- NOTE | 2020-01-17 13:10 | NUR ---
DR HERNANDEZ AT BEDSIDE. UPDATE GIVEN. NO NEW ORDERS AT THIS TIME. WANTS TO CONTACT DR FAGAN TO SEE IF PT IS SCHEDULED FOR ANY NEW SURGERIES. IF NOT POSSIBLE EXTUBATION.
--- NOTE | 2020-01-17 17:41 | NUR ---
PRIYANK JUAREZ CALLED FOR UPDATE. MOTHER DOES NOT WANT TO GIVE INFORMATION TO MR BAUTISTA. HOWEVER HE PROVIDED THE SECURITY CODE. SPOKE WITH [facility] NURSE BULK SEALER ABOUT WHAT TO DO. SHE STATED THAT THERE WAS NOTHING WE COULD DO SINCE HE PROVIDED THE CODE. UPDATE GIVEN TO MR BAUTISTA.
--- NOTE | 2020-01-17 19:30 | NUR ---
PT INTUBATED, SEDATION INFUSING, PT RESTLESS/AGITATED. UNABLE TO FOLLOW COMMANDS. PT REPOSITIONED WITH PROMINENCES BRIDGED. ORAL CARE PROVIDED. ROOM VISIBLE FROM NURSES STATION. CPOC.
--- NOTE | 2020-01-17 23:30 | NUR ---
REASSESSMENT COMPLETE, SEE FLOWSHEET FOR ALL FINDINGS. PT REMAINS RESTLESS AND AGITATED WITH LITTLE STIMULATION. REPOSITIONED WITH PROMINENCES BRIDGED. ORAL CARE PROVIDED. VSS, CPOC.
[2020-01-18] VITALS (24 sets, daily range): BP systolic 85–122; BP diastolic 64–95; Ht 152.4 cm; Wt 63.2 kg
--- NOTE | 2020-01-18 01:30 | NUR ---
PT REPOSITIONED WITH PROMINENCES BRIDGED. ORAL CARE PROVIDED. VSS, NO S/S OF PAIN. ROOM VISIBLE FROM NURSES STATION. CPOC.
--- NOTE | 2020-01-18 04:00 | NUR ---
COMPLETE CHG BATH AND LINEN CHANGE PROVIDED. PROMINENCES BRIDGED. ORAL CARE COMPLETED. VSS, CPOC.
[2020-01-18 05:02] LABS: BASOPHILS 0.1 % (0-2); EOSINOPHILS 1.6 % (0-7); HEMATOCRIT 28.4 % (36.0-48.0); HEMOGLOBIN 9.2 g/dL (12-16); IMMATURE GRANULOCYTES 0.3 % (0-5); LYMPHOCYTES 14.6 % (15-50); MCH 27.4 pg (26.0-34.0); MCHC 32.4 g/dL (31.0-37.0); MCV 84.5 fL (80.0-100.0); MEAN PLATELET VOLUME 8.2 fL (7.4-10.4); MONOCYTES 10.7 % (2-11); NEUTROPHILS 72.7 % (40-80); PLATELET COUNT 170 10x3/uL (130-400); RBC 3.36 10x6/uL (4.00-5.40); RDW 16.8 % (11.5-14.5); WBC 8.8 10x3/uL (4.8-10.8)
[2020-01-18 05:23] LABS: CALC OSMOLALITY 276 mosm/kg (275-300); CALCIUM 7.7 mg/dL (8.5-10.1); CHLORIDE - SERUM 108 mmol/L (98-107); CREATININE - SERUM 0.4 mg/dL (0.6-1.3); GLUCOSE 123 mg/dL (74-106); MAGNESIUM - SERUM 1.4 mg/dL (1.8-2.4); POTASSIUM - SERUM 3.8 mmol/L (3.5-5.1); SODIUM 140 mmol/L (136-145); UREA NITROGEN 4 mg/dL (7-18); eGFR NON AFRICAN AMERICAN > 90 mL/min (90-120)
[2020-01-18 05:30] LABS: LIPASE 129 U/L (73-393); PHOSPHOROUS 2.8 mg/dL (2.5-4.9)
--- NOTE | 2020-01-18 13:13 | NUR ---
OPEN SURGICAL WOUND LOCATED ON LEFT LABIA MEASURING 3CM X 3CM X 0.5CM X 1CM FROM 12-12 OCLOCK. WOUND IS DRAINING THICK YELLOW EXUDATE. ODOR NOTED. RECOMMEND WET TO DRY DRESSINGS USING SALINE AND 4X4S TWICE A DAY. WOUND CARE WILL MONITOR.
--- NOTE | 2020-01-18 17:42 | NUR ---
0700- see assessment 0900- cpap trials 1100- dr chu at bedside 1300- family called passcode provided 1500- see reassesment 1700- i and o done
--- NOTE | 2020-01-18 18:33 | MORECARE ---
CASE MANAGEMENT DISCHARGE SUMMARY PATIENT: BECKA OLSON UNIT: [id number] ADM DATE: 01/13/20 AGE: 39 : 82 SEX: F ROOM/BED: D.2305 AUTHOR: FRANCISCO,DOC PHYSICIAN: REFERRING PHYSICIAN: KATELIN SIVLERMAN MD DATE OF SERVICE: 01/18/20 Discharge Plan Patient Name: BECKA OLSON Facility: [facility]:[place] : 1980 Planned Disposition: Home Anticipated Discharge Date: Discharge Date: Expected LOS: Initial Reviewer: [email or web address] Initial Review Date: 01/16/2020 Generated: 01/18/20 7:32 pm Comments DCP- Discharge Planning Updated by [email or web address]: Deb Blackwell on 01/18/20 5:[address] CM attempted to call Elroy Avila [phone] it is a work number and CM wasn't able to talk to a human just got voice recordings. CM attempted to call patient's mother Rolanda Gordon [phone]. no answer. CM called and spoke with Lorenzo with [employer] and told him that patient has fianc? Luke Martines [phone] that he can call to get financials since this is with whom she lives with. Lorenzo stated that he didn't know if they was allowed to get it from a fianc? . CM will continue to follow and assist as needed with discharge planning / needs. DCP- Discharge Planning Updated by [email or web address]: Deb Blackwell on 01/16/20 4:[address] Patient Name: BECKA OLSON Admission Status: ER Accout number: [id number] Admission Date: 01-13-2020 : 1980 Admission Diagnosis:SEPSIS, UNSPECIFIED ORGANISM Attending: KATELIN SILVERMAN Current LOS: 3 Anticipated DC Date: Planned Disposition: Home Primary Insurance: UNINSURED DISCOUNT PLAN Discharge Planning Comments: CM called and spoke with patient's fianc? Kristen Martines [phone] this is also the message number for the patient's son Terese Palm. Patient is currently sedated on vent. CM spoke to Kristen to complete initial dc planning assessment. CM educated patient on the CM role and verbal consent given by patient to complete assessment. Patient lives at home with her Kristen where she is independent with her care. At discharge patient plans to return home and feels this is a safe discharge. CM discussed availability of home health, rehab services, and medical equipment. Family will drive her home upon discharge. Kristen stated that the patient usually has [employer] with [facility] but this may have lapsed. He also stated that the patient doesn't have a glucometer or testing supplies at home. He stated that she is not compliant with taking her meds as ordered. Kristen denied known discharge needs at this time. CM called and spoke with Lorenzo in [employer] and he stated that patient had a listing under name of [place] but insurance had lapsed in 02/2019. [employer] will come to speak to patient once she is off vent. CM will continue to follow and will assist as needed with dc plans/needs Sign Artist: Deb Blackwell DCP- Discharge Planning Updated by [id number]: Deb Blackwell on 01/15/20 6:[address] CM attempted to contact patient's son Terese Palm left message but didn't get a return call. CM will continue to follow and assist as needed with discharge planning / needs. DCPIA - Discharge Planning Initial Assessment Updated by [email or web address]: Deb Blackwell on 01/16/20 5:01 pm * Is the patient Alert and Oriented? No * How many steps to enter\exit or inside your home? * PCP NO PCP * Pharmacy [facility] * Preadmission Environment Home with Family * ADLs Independent * Equipment None * List name and contact numbers for known caregivers / representatives who currently or will assist patient after discharge: KRISTEN JUAREZ - [phone] TERESE PALM - SON - MESSAGE # [phone] * Verbal permission to speak to the caregivers and representatives has been obtained from the patient. N/A * Community resources currently utilized None * Additional services required to return to the preadmission environment? No * Can the patient safely return to the preadmission environment? Yes * Has this patient been hospitalized within the prior 30 days at any hospital? No Last DP export: 01/16/20 4:17 p Patient Name: BECKA OLSON Page [id number] at 1833 All edits/amendments must be made on the electronic document DICTATION DATE: 01/18/201831 PAPER CUP HANDLE MACHINE OPERATOR: ABEBE 01/18/201831 RPT#: [id number] DC DATE: STATUS: ADM IN [facility] [address] [place] [address] END OF REPORT
--- NOTE | 2020-01-18 19:15 | NUR ---
REPORT RECEIVED. PT INTUBATED AND SEDATED. ASSESSMENT COMPLETE, SEE FLOWSHEET.
--- NOTE | 2020-01-18 21:00 | NUR ---
PM MEDS ADMINISTERED WITHOUT DIFFICULTY.
--- NOTE | 2020-01-18 23:00 | NUR ---
PT SEDATED ON VENT. NO CHANGE IN STATUS.
[2020-01-19] VITALS (8 sets, daily range): BP systolic 83–107; BP diastolic 58–78
--- NOTE | 2020-01-19 01:00 | NUR ---
PT SEDATED ON VENT, NO ACUTE DISTRESS NOTED.
--- NOTE | 2020-01-19 03:00 | NUR ---
PT SEDATED ON VENT, NO ACUTE DISTRESS NOTED.
--- NOTE | 2020-01-19 05:00 | NUR ---
DRESSING CHANGED ON LEFT GROIN/LABIA. SCANT DRAINAGE NOTED. WILL CONTINUE TO MONITOR.
[2020-01-19 06:04] LABS: BASOPHILS 0.1 % (0-2); EOSINOPHILS 1.7 % (0-7); HEMATOCRIT 28.8 % (36.0-48.0); HEMOGLOBIN 9.3 g/dL (12-16); IMMATURE GRANULOCYTES 0.2 % (0-5); LYMPHOCYTES 10.8 % (15-50); MCH 27.2 pg (26.0-34.0); MCHC 32.3 g/dL (31.0-37.0); MCV 84.2 fL (80.0-100.0); MEAN PLATELET VOLUME 7.9 fL (7.4-10.4); MONOCYTES 12.3 % (2-11); NEUTROPHILS 74.9 % (40-80); RBC 3.42 10x6/uL (4.00-5.40); RDW 16.6 % (11.5-14.5); WBC 8.6 10x3/uL (4.8-10.8)
[2020-01-19 06:09] LABS: PLATELET COUNT 210 10x3/uL (130-400)
[2020-01-19 06:34] LABS: ALBUMIN 1.5 g/dL (3.4-5.0); ALKALINE PHOSPHATASE 72 U/L (30-120); ALT (SGPT) 12 U/L (10-68); BILIRUBIN - TOTAL 0.26 mg/dL (0.2-1.3); CALC OSMOLALITY 272 mosm/kg (275-300); CALCIUM 7.9 mg/dL (8.5-10.1); CARBON DIOXIDE 25.1 mmol/L (21.0-32.0); CHLORIDE - SERUM 107 mmol/L (98-107); CREATININE - SERUM 0.3 mg/dL (0.6-1.3); GLUCOSE 117 mg/dL (74-106); LIPASE 98 U/L (73-393); MAGNESIUM - SERUM 1.3 mg/dL (1.8-2.4); PHOSPHOROUS 2.8 mg/dL (2.5-4.9); POTASSIUM - SERUM 3.7 mmol/L (3.5-5.1); PROTEIN - SERUM 4.9 g/dL (6.4-8.2); SODIUM 138 mmol/L (136-145); eGFR NON AFRICAN AMERICAN > 90 mL/min (90-120)
[2020-01-19 06:37] LABS: UREA NITROGEN 2 mg/dL (7-18)
--- NOTE | 2020-01-19 07:00 | NUR ---
report recieved. see assessment. see adl's.
--- NOTE | 2020-01-19 09:05 | NUR ---
see adl's. no acute distress.
--- NOTE | 2020-01-19 09:22 | NUR ---
Nutrition follow-up: Pt remains intubated, sedated NPO ProcalAmine PPN @ 50 ml/hr Labs reviewed WT: 139# Recommend NGT placement and TF started; TG WNL. Recommend Osmolite 1.0 turner @ 25 ml/hr with gradual increase to goal rate of 60 ml/hr. RDN following.
--- NOTE | 2020-01-19 09:40 | NUR ---
PLACED PT ON PS 10/5 30% HR 94 SPO2 92 BP 102/67 VT 350 RSBI 27
--- NOTE | 2020-01-19 14:52 | NUR ---
new iv started on r forearm
--- NOTE | 2020-01-19 15:01 | NUR ---
patient positioned. combative. tried kicking camille moeller. started to gather spit in her mouth. mask put on her. no acute distress. central line pulled because after directing patient to not be squirming in bed and moving her head so she wouldn't pull the central line out she did the opposite and started to squirm and move her head to pull it out and stated "i dont care."
--- NOTE | 2020-01-19 16:22 | MORECARE ---
CASE MANAGEMENT DISCHARGE SUMMARY PATIENT: BECKA OLSON UNIT: [id number] ADM DATE: 01/13/20 AGE: 39 : [birth year] SEX: F ROOM/BED: D.2305 AUTHOR: FRANCISCO,DOC PHYSICIAN: REFERRING PHYSICIAN: KATELIN SILVERMAN MD DATE OF SERVICE: 01/19/20 Discharge Plan Patient Name: BECKA OLSON Facility: [facility]:[place] : 1980 Planned Disposition: Home Anticipated Discharge Date: Discharge Date: Expected LOS: Initial Reviewer: [email or web address] Initial Review Date: 01/16/2020 Generated: 01/19/20 5:21 pm Comments DCP- Discharge Planning Updated by [email or web address]: Deb Blackwell on 01/19/20 3:[address] CM spoke with Lorenzo in [employer] and he stated that he had talked to fianc? and got financial information. Lorenzo stated that fianc? stated that patient had reapplied so Lorenzo was going to check with her correctional counselor/case manager at [facility]. CM will continue to follow and assist as needed with discharge planning/ needs. DCP- Discharge Planning Updated by [id number]: Deb Blackwell on 01/18/20 5:[address] CM attempted to call Elroy Avila [phone] it is a work number and CM wasn't able to talk to a human just got voice recordings. CM attempted to call patient's mother Rolanda Gordon [phone]. no answer. CM called and spoke with Lorenzo with [employer] and told him that patient has fianc? Luke Bautista [phone] that he can call to get financials since this is with whom she lives with. Lorenzo stated that he didn't know if they was allowed to get it from a fianc? . CM will continue to follow and assist as needed with discharge planning / needs. DCP- Discharge Planning Updated by [id number]: Deb Blackwell on 01/16/20 4:[address] Patient Name: BECKA OLSON Admission Status: ER Accout number: [id number] Admission Date: 01-13-2020 : 1980 Admission Diagnosis:SEPSIS, UNSPECIFIED ORGANISM Attending: KATELIN SILVERMAN Current LOS: 3 Anticipated DC Date: Planned Disposition: Home Primary Insurance: UNINSURED DISCOUNT PLAN Discharge Planning Comments: CM called and spoke with patient's marta Bautista [phone] this is also the message number for the patient's son Terese Palm. Patient is currently sedated on vent. CM spoke to Kristen to complete initial dc planning assessment. CM educated patient on the CM role and verbal consent given by patient to complete assessment. Patient lives at home with her Kristen where she is independent with her care. At discharge patient plans to return home and feels this is a safe discharge. CM discussed availability of home health, rehab services, and medical equipment. Family will drive her home upon discharge. Kristen stated that the patient usually has [employer] with [facility] but this may have lapsed. He also stated that the patient doesn't have a glucometer or testing supplies at home. He stated that she is not compliant with taking her meds as ordered. Kristen denied known discharge needs at this time. CM called and spoke with Lorenzo in [employer] and he stated that patient had a listing under name of [place] but insurance had lapsed in 02/2019. [employer] will come to speak to patient once she is off vent. CM will continue to follow and will assist as needed with dc plans/needs Production Supply Equipment Tender: Deb Blackwell DCP- Discharge Planning Updated by [id number]: Deb Blackwell on 01/15/20 6:[address] CM attempted to contact patient's son Terese Palm left message but didn't get a return call. CM will continue to follow and assist as needed with discharge planning / needs. DCPIA - Discharge Planning Initial Assessment Updated by [id number]: Deb Blackwell on 01/16/20 5:01 pm * Is the patient Alert and Oriented? No * How many steps to enter\exit or inside your home? * PCP NO PCP * Pharmacy [facility] * Preadmission Environment Home with Family * ADLs Independent * Equipment None * List name and contact numbers for known caregivers / representatives who currently or will assist patient after discharge: KRISTEN BAUTISTA - [employer]ANCE - [phone] TERESE PALM - SON - MESSAGE # [phone] * Verbal permission to speak to the caregivers and representatives has been obtained from the patient. N/A * Community resources currently utilized None * Additional services required to return to the preadmission environment? No * Can the patient safely return to the preadmission environment? Yes * Has this patient been hospitalized within the prior 30 days at any hospital? No Last DP export: 01/18/20 5:33 p Patient Name: BECKA OLSON Page [id number] at 1622 All edits/amendments must be made on the electronic document DICTATION DATE: 01/19/20 162 REFERENCE SERVICES HEAD: ABEBE 01/19/20 1621 RPT#: [id number] DC DATE: STATUS: ADM IN [facility] [address] [place] [address] END OF REPORT
--- NOTE | 2020-01-19 17:00 | NUR ---
dressing changed according to orders
--- NOTE | 2020-01-19 19:00 | NUR ---
ASSESSMENT COMPLETED. BREATHING ROOM AIR. CONFUSED. GARBLED SPEECH.
--- NOTE | 2020-01-19 21:00 | NUR ---
CHG COMPLETED. BM, SMALL FORMED. COMPLETE LINEN CHANGE.
--- NOTE | 2020-01-19 23:00 | NUR ---
RE-ASSESSMENT COMPLETED. NO CHANGES SINCE LAST ASSESSMENT. ANOTHER BM. REDRESSED WOUND PER ORDERS D/T SOILED. PATIENT STARTING TO TURN INDEPENDENT ON SIDES
--- NOTE | 2020-01-20 01:00 | NUR ---
DENIES ANY NEEDS. EASILY WAKES. PATIENT TURNING INDEPENDENTLY. CALL LIGHT IN REACH. CONT CONFUSION
--- NOTE | 2020-01-20 03:00 | NUR ---
RE-ASSESSMENT COMPLETED. PATIENT TOOK BP CUFF OFF 3 TIMES. WHEN TRYING TO PUT ON THIS TIME, PATIENT REFUSED. SHE SAID THAT IT WASN'T GOING BACK ON HER ARM AND SHE TOOK OFF HER PULSE OX MONITOR. PATIENT STATED THAT SHE WANTED SOMETHING TO DRINK AND TO GET UP. EDUCATED ON NOT EATING JUST YET UNTIL MD SAYS OK OR EVAL BY BULB FARMWORKER. PATIENT AGAIN SAID SHE IS GETTING UP NOW. ASSISTED PATIENT TO BEDSIDE RECLINER. UNSTEADY GAIT NOTED. CALL LIGHT IN REACH ON LAP. PATIENT LET NURSE PUT BP CUFF ON LEG.
--- NOTE | 2020-01-20 05:00 | NUR ---
ASSISTED PATIENT BACK TO BED PER REQUEST. CALL LIGHT IN REACH. UNSTEADY GAIT
--- NOTE | 2020-01-20 07:00 | NUR ---
BEDSIDE REPORT RECEIVED. SHIFT ASSESSMENT COMPLETED PER FLOWSHEET, SEE FLOWSHEET FOR INFORMAITON. NO ACUTE NEEDS OR DISTRESS NOTED AT THIS TIME. WILL CONT TO MONITOR.
[2020-01-20 08:37] LABS: BASOPHILS 0.2 % (0-2); EOSINOPHILS 1.3 % (0-7); HEMATOCRIT 28.7 % (36.0-48.0); HEMOGLOBIN 9.3 g/dL (12-16); IMMATURE GRANULOCYTES 0.2 % (0-5); LYMPHOCYTES 13.3 % (15-50); MCH 27.2 pg (26.0-34.0); MCHC 32.4 g/dL (31.0-37.0); MCV 83.9 fL (80.0-100.0); MONOCYTES 11.2 % (2-11); NEUTROPHILS 73.8 % (40-80); RBC 3.42 10x6/uL (4.00-5.40); RDW 16.6 % (11.5-14.5); WBC 8.6 10x3/uL (4.8-10.8)
[2020-01-20 08:54] LABS: ALBUMIN 1.7 g/dL (3.4-5.0); ALKALINE PHOSPHATASE 79 U/L (30-120); ALT (SGPT) 15 U/L (10-68); BILIRUBIN - TOTAL 0.32 mg/dL (0.2-1.3); CALCIUM 7.9 mg/dL (8.5-10.1); CARBON DIOXIDE 23.2 mmol/L (21.0-32.0); CHLORIDE - SERUM 106 mmol/L (98-107); GLUCOSE 152 mg/dL (74-106); MAGNESIUM - SERUM 1.5 mg/dL (1.8-2.4); PHOSPHOROUS 2.8 mg/dL (2.5-4.9); POTASSIUM - SERUM 3.6 mmol/L (3.5-5.1); PROTEIN - SERUM 5.3 g/dL (6.4-8.2); SODIUM 140 mmol/L (136-145); TRIGLYCERIDE 144 mg/dL (30-200)
[2020-01-20 08:57] LABS: CALC OSMOLALITY 277 mosm/kg (275-300); CREATININE - SERUM 0.4 mg/dL (0.6-1.3); UREA NITROGEN 1 mg/dL (7-18); eGFR NON AFRICAN AMERICAN > 90 mL/min (90-120)
--- NOTE | 2020-01-20 09:00 | NUR ---
0900 MEDICATIONS GIVEN. WILL CONT TO MONITOR.
[2020-01-20 09:05] LABS: PLATELET COUNT 255 10x3/uL (130-400)
--- NOTE | 2020-01-20 11:00 | NUR ---
NEW ORDER RECEIVED. REASSESSMENT COMPLETED PER FLOWSHEET. WILL CONT TO MONITOR.
--- NOTE | 2020-01-20 13:07 | NUR ---
PAPTIENT RECEIVED TO ROOM WITH FALL PRECAUTIONS AND ISOLATON PRECATIONS IN PLACE. ALERT AND ORIENTED AND INSTRUCTED TO USE CALL LIGHT FOR ASSSIT.
--- NOTE | 2020-01-20 14:28 | NUR ---
PATIENT HAD LARGE BM WHILE UP TO BSC AND THEN HAD INCONTINENT OF BM EPISODE WHILE IN BED. PERICARE DONE WITH PERINEAL DRESSING CHANGED PER ORDER. PATIENT VERBALIZED UNDERTANDING.
--- NOTE | 2020-01-20 20:10 | NUR ---
AWAKE,ALERT UP AMBULATING IN ROOM. IV TO LFA INTACT WITHOUT REDNESS OR EDEMA NOTED. NO COMPLAITNS VOICED. FAMILY IN ROOM.
--- NOTE | 2020-01-21 04:39 | NUR ---
I have reviewed this patient and I concur with the Shift Assessment completed by the Licensed Practical Nurse today this shift.
--- NOTE | 2020-01-21 10:13 | NUR ---
resting in bed, no distress noted, iv infusing with procal, cont to monitor sugars
--- NOTE | 2020-01-21 19:54 | NUR ---
AWAKE,ALERT.NO COMPLAITNS VOCIED. RESP EVEN AND UNALBORED. NO DISTRESS NOTED. SL TO LFA WITHOUT REDNESS OR EDEMA NOTED. CL IN REACH
--- NOTE | 2020-01-22 05:29 | NUR ---
I have reviewed this patient and I concur with the Shift Assessment completed by the Licensed Practical Nurse today this shift.
--- NOTE | 2020-01-22 07:19 | NUR ---
ALERT AND ORIENTED. LUNGS CLEAR BILATERALLY. HEART SOUNDS S1 AND S2 HEARD IN ALL TAPIA. BOWEL SOUNDS ACTIVE X 4. ABCESS TO LEFT LABIA. SKIN OTHERWISE INTACT WITHOUT REDNESS. IV TO LFA PATENT WITHOUT REDNESS. DENIES PAIN. DENIES NEEDS. BED LOW. CALL KEITA AND PERSONAL ITEMS IN REACH. WILL CONTINUE TO MONITOR.
[2020-01-22 09:59] LABS: BASOPHILS 0.3 % (0-2); HEMATOCRIT 31.3 % (36.0-48.0); IMMATURE GRANULOCYTES 0.8 % (0-5); LYMPHOCYTES 28.5 % (15-50); MCH 27.1 pg (26.0-34.0); MCHC 31.9 g/dL (31.0-37.0); MCV 84.8 fL (80.0-100.0); MEAN PLATELET VOLUME 8.1 fL (7.4-10.4); MONOCYTES 12.4 % (2-11); PLATELET COUNT 226 10x3/uL (130-400); RBC 3.69 10x6/uL (4.00-5.40); RDW 16.5 % (11.5-14.5); WBC 6.5 10x3/uL (4.8-10.8)
[2020-01-22 10:10] LABS: ALBUMIN 2.3 g/dL (3.4-5.0); ALKALINE PHOSPHATASE 92 U/L (30-120); ALT (SGPT) 18 U/L (10-68); BILIRUBIN - TOTAL 0.27 mg/dL (0.2-1.3); CALC OSMOLALITY 286 mosm/kg (275-300); CALCIUM 8.7 mg/dL (8.5-10.1); CARBON DIOXIDE 28.9 mmol/L (21.0-32.0); CHLORIDE - SERUM 102 mmol/L (98-107); CREATININE - SERUM 0.6 mg/dL (0.6-1.3); POTASSIUM - SERUM 3.4 mmol/L (3.5-5.1); PROTEIN - SERUM 6.3 g/dL (6.4-8.2); SODIUM 139 mmol/L (136-145); UREA NITROGEN 6 mg/dL (7-18); eGFR NON AFRICAN AMERICAN > 90 mL/min (90-120)
[2020-01-22 10:25] LABS: GLUCOSE 292 mg/dL (74-106)
--- NOTE | 2020-01-22 11:26 | NUR ---
LEVAQUIN WILL BE LATE D/T AM VANCOMYCIN STILL HANGING.
[2020-01-22 13:23] VITALS: BP 111/68
--- NOTE | 2020-01-22 14:29 | NUR ---
RESTING IN BED. DENIES NEEDS. WILL CONTINUE TO MONITOR.
--- NOTE | 2020-01-22 16:21 | NUR ---
PER CM, PATIENT UNABLE TO GET HOME HEALTH DT NO INSURANCE. PATIENT STATES MOM AND DAUGHTER WILL HELP WITH DRSG CHANGES AT HOME. DRSG CHANGE SUPPLIES SENT WITH PATIENT. EDUCATION PROVIDED ON DRSG CHANGES AND PATIENT VERBALIZES UNDERSTANDING.
--- NOTE | 2020-01-22 16:31 | NUR ---
DISCHARGE EDUCATION PROVIDED BOTH WRITTEN AND VERBAL. VERBALIZED UNDERSTANDING. DENIES FURTHER QUESTIONS. NPH INSULIN AND HUMULIN GIVEN TO PATIENT FOR DISCHARGE. DENIES FURTHER NEEDS. IV REMOVED FROM LFA WITH TIP INTACT. PATIENT DISCHARGED HOME WITH DAUGHTER WITH ALL BELONGINGS.
--- NOTE | 2020-01-22 17:23 | MORECARE ---
CASE MANAGEMENT DISCHARGE SUMMARY PATIENT: BECKA OLSON UNIT: [id number] ADM DATE: 01/13/20 AGE: 39 : 82 SEX: F ROOM/BED: D.2231 AUTHOR: FRANCISCO,DOC PHYSICIAN: REFERRING PHYSICIAN: KATELIN SILVERMAN MD DATE OF SERVICE: 01/22/20 Discharge Plan Patient Name: BECKA OLSON Facility: [facility]:[place] : 1980 Planned Disposition: Home Anticipated Discharge Date: Discharge Date: 01/22/2020 Expected LOS: Initial Reviewer: [email or web address] Initial Review Date: 01/16/2020 Generated: 01/22/20 6:22 pm Comments DCP- Discharge Planning Updated by [email or web address]: Piedad Duncan on 01/22/20 4:[address] YANI had received discharge orders. Patient states she has Metformin at home. States I can purchase that, it is 8 dollars at [facility]. States she is unable to purchase a glucometer and supplies or her insulin and antibiotic. I informed her that for a little over 20 dollars she can get a glucometer and supplies at [facility], but states she cannot purchase. I have gotten approval for Humulin insulin NPH - $153.79, Augmentin 875/125mg PO BID for 10 days - $28.08, Glucometer $35.40, Syringes - $20/box, Lancets $12.49, Test strips $51.11 all approved from Daniela Jiang and informed patient that she would need to order picker before 6PM. She states she will have family pick her up and get them at [facility] pharmacy. I informed her when her Medicaid was approved to go on the website and pick a PCP. I also informed her that she should use her Medicaid slots for her insulin and more expensive items. She does not have any insurance for home health. Her nurse, Aixa, states she will teach her sister and the patient on how to do her dressing changes. Home today. DCP- Discharge Planning Updated by [email or web address]: Deb Blackwell on 01/19/20 3:[address] YANI spoke with Lorenzo in [employer] and he stated that he had talked to emeli? and got financial information. Lorenzo stated that fianc? stated that patient had reapplied so Lorenzo was going to check with her upper caser at [facility]. CM will continue to follow and assist as needed with discharge planning/ needs. DCP- Discharge Planning Updated by [email or web address]: Deb Blackwell on 01/18/20 5:[address] CM attempted to call Elroy Avila [phone] it is a work number and CM wasn't able to talk to a human just got voice recordings. CM attempted to call patient's mother Rolanda Gordon [phone]. no answer. CM called and spoke with Lorenzo with [employer] and told him that patient has fianc? Luke Conrad [phone] that he can call to get financials since this is with whom she lives with. Lorenzo stated that he didn't know if they was allowed to get it from a fianc? . CM will continue to follow and assist as needed with discharge planning / needs. DCP- Discharge Planning Updated by [email or web address]: Deb Blackwell on 01/16/20 4:[address] Patient Name: BECKA OLSON Admission Status: ER Accout number: [id number] Admission Date: 01-13-2020 : 1980 Admission Diagnosis:SEPSIS, UNSPECIFIED ORGANISM Attending: KATELIN SILVERMAN Current LOS: 3 Anticipated DC Date: Planned Disposition: Home Primary Insurance: UNINSURED DISCOUNT PLAN Discharge Planning Comments: CM called and spoke with patient's fiyane? Kristen Bautista [phone] this is also the message number for the patient's son Terese Palm. Patient is currently sedated on vent. CM spoke to Kristen to complete initial dc planning assessment. CM educated patient on the CM role and verbal consent given by patient to complete assessment. Patient lives at home with her Kristen where she is independent with her care. At discharge patient plans to return home and feels this is a safe discharge. CM discussed availability of home health, rehab services, and medical equipment. Family will drive her home upon discharge. Kristen stated that the patient usually has [employer] with [facility] but this may have lapsed. He also stated that the patient doesn't have a glucometer or testing supplies at home. He stated that she is not compliant with taking her meds as ordered. Kristen denied known discharge needs at this time. CM called and spoke with Lorenzo in [employer] and he stated that patient had a listing under name of [place] but insurance had lapsed in 02/2019. [employer] will come to speak to patient once she is off vent. CM will continue to follow and will assist as needed with dc plans/needs Checker Dump Grounds: Deb Blackwell DCP- Discharge Planning Updated by [email or web address]: Deb Blackwell on 01/15/20 6:[address] CM attempted to contact patient's son Terese Palm left message but didn't get a return call. CM will continue to follow and assist as needed with discharge planning / needs. DCPIA - Discharge Planning Initial Assessment Updated by [email or web address]: Deb Blackwell on 01/16/20 5:01 pm * Is the patient Alert and Oriented? No * How many steps to enter\exit or inside your home? * PCP NO PCP * Pharmacy [facility] * Preadmission Environment Home with Family * ADLs Independent * Equipment None * List name and contact numbers for known caregivers / representatives who currently or will assist patient after discharge: KRISTEN BAUTISTA - [place] - [phone] TERESE PALM - SON - MESSAGE # [phone] * Verbal permission to speak to the caregivers and representatives has been obtained from the patient. N/A * Community resources currently utilized None * Additional services required to return to the preadmission environment? No * Can the patient safely return to the preadmission environment? Yes * Has this patient been hospitalized within the prior 30 days at any hospital? No Last DP export: 01/19/20 3:22 p Patient Name: BECKA OLSON Page [id number] at 1723 All edits/amendments must be made on the electronic document DICTATION DATE: 01/22/201721 CATTLE SORTER: ABEBE 01/22/201721 RPT#: [id number] DC DATE:01/22/20 STATUS: DIS IN [facility] [address] [place] [address] END OF REPORT
--- NOTE | 2020-01-24 15:17 | MORECARE ---
CASE MANAGEMENT DISCHARGE SUMMARY PATIENT: BECKA OLSON UNIT: [id number] ADM DATE: 01/13/20 AGE: 39 : 82 SEX: F ROOM/BED: D.2231 AUTHOR: FRANCISCO,DOC PHYSICIAN: REFERRING PHYSICIAN: KATELIN SILVERMAN MD DATE OF SERVICE: 01/24/20 Discharge Plan Patient Name: BECKA OLSON Facility: [facility]:[place] : 1980 Planned Disposition: Home Anticipated Discharge Date: Discharge Date: 01/22/2020 Expected LOS: 0 Initial Reviewer: [id number] Initial Review Date: 01/16/2020 Generated: 01/24/20 4:16 pm Comments DCP- Discharge Planning Updated by [email or web address]: Piedad Duncan on 01/22/20 4:[address] YANI had received discharge orders. Patient states she has Metformin at home. States I can purchase that, it is 8 dollars at [facility]. States she is unable to purchase a glucometer and supplies or her insulin and antibiotic. I informed her that for a little over 20 dollars she can get a glucometer and supplies at [facility], but states she cannot purchase. I have gotten approval for Humulin insulin NPH - $153.79, Augmentin 875/125mg PO BID for 10 days - $28.08, Glucometer $35.40, Syringes - $20/box, Lancets $12.49, Test strips $51.11 all approved from Daniela Jiang and informed patient that she would need to spanish moss picker before 6PM. She states she will have family pick her up and get them at [facility] pharmacy. I informed her when her Medicaid was approved to go on the website and pick a PCP. I also informed her that she should use her Medicaid slots for her insulin and more expensive items. She does not have any insurance for home health. Her nurse, Aixa, states she will teach her sister and the patient on how to do her dressing changes. Home today. DCP- Discharge Planning Updated by [email or web address]: Deb Blackwell on 01/19/20 3:[address] YANI spoke with Lorenzo in [employer] and he stated that he had talked to emeli? and got financial information. Lorenzo stated that fianc? stated that patient had reapplied so Lorenzo was going to check with her rn case manager at [facility]. CM will continue to follow and assist as needed with discharge planning/ needs. DCP- Discharge Planning Updated by [id number]: Deb Blackwell on 01/18/20 5:[address] CM attempted to call Elroy Avila [phone] it is a work number and CM wasn't able to talk to a human just got voice recordings. CM attempted to call patient's mother Rolanda Gordon [phone]. no answer. CM called and spoke with Lorenzo with [employer] and told him that patient has fianc? Luke Conrad [phone] that he can call to get financials since this is with whom she lives with. Lorenzo stated that he didn't know if they was allowed to get it from a fianc? . CM will continue to follow and assist as needed with discharge planning / needs. DCP- Discharge Planning Updated by [email or web address]: Deb Blackwell on 01/16/20 4:[address] Patient Name: BECKA OLSON Admission Status: ER Accout number: [id number] Admission Date: 01-13-2020 : 1980 Admission Diagnosis:SEPSIS, UNSPECIFIED ORGANISM Attending: KATELIN SILVERMAN Current LOS: 3 Anticipated DC Date: Planned Disposition: Home Primary Insurance: UNINSURED DISCOUNT PLAN Discharge Planning Comments: CM called and spoke with patient's fisujatha Bautista [phone] this is also the message number for the patient's son Terese Palm. Patient is currently sedated on vent. CM spoke to Kristen to complete initial dc planning assessment. CM educated patient on the CM role and verbal consent given by patient to complete assessment. Patient lives at home with her Kristen where she is independent with her care. At discharge patient plans to return home and feels this is a safe discharge. CM discussed availability of home health, rehab services, and medical equipment. Family will drive her home upon discharge. Kristen stated that the patient usually has [employer] with [facility] but this may have lapsed. He also stated that the patient doesn't have a glucometer or testing supplies at home. He stated that she is not compliant with taking her meds as ordered. Kristen denied known discharge needs at this time. CM called and spoke with Lorenzo in [employer] and he stated that patient had a listing under name of [place] but insurance had lapsed in 02/2019. [employer] will come to speak to patient once she is off vent. CM will continue to follow and will assist as needed with dc plans/needs Reject Opener And Filler: Deb Blackwell DCP- Discharge Planning Updated by [email or web address]: Deb Blackwell on 01/15/20 6:[address] CM attempted to contact patient's son Terese Palm left message but didn't get a return call. CM will continue to follow and assist as needed with discharge planning / needs. DCPIA - Discharge Planning Initial Assessment Updated by [email or web address]: Deb Blackwell on 01/16/20 5:01 pm * Is the patient Alert and Oriented? No * How many steps to enter\exit or inside your home? * PCP NO PCP * Pharmacy [facility] * Preadmission Environment Home with Family * ADLs Independent * Equipment None * List name and contact numbers for known caregivers / representatives who currently or will assist patient after discharge: KRISTEN BAUTISTA - [place] - [phone] TERESE PALM - SON - MESSAGE # [phone] * Verbal permission to speak to the caregivers and representatives has been obtained from the patient. N/A * Community resources currently utilized None * Additional services required to return to the preadmission environment? No * Can the patient safely return to the preadmission environment? Yes * Has this patient been hospitalized within the prior 30 days at any hospital? No Last DP export: 01/22/20 4:23 p Patient Name: BECKA OLSON Page [id number] at 1517 All edits/amendments must be made on the electronic document DICTATION DATE: 01/24/201515 [employer]: ABEBE 01/24/201515 RPT#: [id number] DC DATE:01/22/20 STATUS: DIS IN [facility] [address] [place] [address] END OF REPORT
== END 2020-01-22 16:33 | disposition home or self-care (01) | DRG 871 ==
LOC: D.ER 12:45 → D.ICU 16:32 → D.MS 01-20 12:45
PROVIDERS: Emergency Medicine; Internal Medicine Pulmonary Disease; Surgery; ADMIT Internal Medicine Nephrology; ATTEND Internal Medicine Nephrology
PROC: 05HM33Z Insertion of Infusion Device into Right Internal Jugular Vein, Percutaneous Approach (ICD-10-PCS; principal; 2020-01-13)
DX: A41.9 Sepsis, unspecified organism (principal); E11.10 Type 2 diabetes mellitus with ketoacidosis without coma; G92 Toxic encephalopathy; K85.92 Acute pancreatitis with infected necrosis, unspecified; Z91.19 Patient's noncompliance with other medical treatment and regimen; D50.9 Iron deficiency anemia, unspecified; E83.39 Other disorders of phosphorus metabolism; K59.00 Constipation, unspecified